=== PATIENT | female | born 1940 | race Caucasian/White ===

== ENCOUNTER → 2017-05-26 | Outpatient (CLI) | payer MEDICARE, BC ==
--- NOTE | 2017-05-26 16:31 | CT ---
EXAMINATION TYPE: CT chest w con DATE OF EXAM: 05/26/2017 COMPARISON: NONE HISTORY: Upper back pain for 3-[address] DLP: 217.9 mGycm, Automated exposure control for dose reduction was used. CONTRAST: Performed injected with 100 mL of Omnipaque 300. TECHNIQUE: Axial images were obtained at 5 mm thick sections. Reconstructed images are reviewed on [employer] computer in the coronal plane. FINDINGS: Portion of the thyroid visualized is normal. Subtle groundglass opacity with a transverse dimension of 0.4 cm is in the anterior right apex. Serie s 4 image 10 lung membreno otherwise appear clear. No enlarged mediastinal or hilar adenopathy is evident. The ascending aorta diameter at the level o f the main pulmonary artery is 2.8 cm. The main pulmonary artery diameter at the bifurcation is 2.[address] sections are obtained through the upper abdomen. Abdomen is essentially unremarkable. Osseous structures appear unremarkable. Some degenerative changes noted in the lower cervical spine. No spinal canal stenosis within the thoracic spine is evident. No suspicious lytic areas are evident. IMPRESSIONS: 1. Tiny density anterior right apex. 2. CT chest is otherwise unremarkable.
== END | disposition home or self-care (01) ==
LOC: RADCTMAIN 14:58
PROVIDERS: ATTEND Internal Medicine Rheumatology
DX: R91.8 Other nonspecific abnormal finding of lung field (principal)
CPT/HCPCS: 82565; 84520; 71260; 36415; Q9967

== ENCOUNTER 2021-06-21 10:18 | Inpatient (IN) | payer MEDICARE, BC ==
[2021-06-21] MEDS ORDERED: SODIUM CHLORIDE 0.9% 1,000 ML IV STA (10:23)
[2021-06-21] MEDS ORDERED: HEPARIN SODIUM 1,000 UN/ML (10ML VL) IV ONE ×3 (10:23→10:57)
[2021-06-21] MEDS ORDERED: LIDOCAINE 1% INJ 10MG/ML (20 ML MDV) ONE (10:25)
[2021-06-21] MEDS ORDERED: NALOXONE 0.4 MG/ML 1 ML VIAL IV PRN (10:26)
--- NOTE | 2021-06-21 10:29 | ED ---
General Adult HPI - General Chief complaint: Chest Pain Stated complaint: STEMI Time Seen by Provider: 06/21/21 10:22 Source: patient, EMS, RN notes reviewed, old records reviewed Mode of arrival: EMS Limitations: no limitations - History of Present Illness Initial comments: Patient is a 81-year-old female with past medical history remarkable for hypert ension, hyperlipidemia who presents emergency Department complaining of sudden onset of chest pain. This occurred at approximately 9 AM. States she was showering when she had sudden onset of left-sided chest pain. States it was a 10 out of 10 at that time, sharp. EMS was called. Patient was found to have EKG changes suggestive of a inferior wall IA, with ST segment elevations in the leads I, 2, aVF. This was sent ahead and communicated to our emergency department before arrival. STEMI pager was activated. Patient is no history of cardiac disease other than hypertension and hyperlipidemia. States this is not occurred previously. Denies any shortness of breath. Denies any abdominal pain. Does endorse that episode of nausea when she started having the pain in the shower, but states she currently has none. States the pain is improved and is now approximately a 6 out of 10. Presents over concern for a heart attack. - Related Data Home Medications Medication Instructions Recorded Confirmed Alendronate Sodium 70 mg PO Q7D 06/21/21 06/21/21 Atorvastatin [Lipitor] 40 mg PO HS 06/21/21 06/21/21 Cyclobenzaprine [Flexeril] 10 mg PO HS PRN 06/21/21 06/21/21 Gabapentin [Neurontin] 300 mg PO TID PRN 06/21/21 06/21/21 Levothyroxine Sodium 88 mcg PO DAILY 06/21/21 06/21/21 Metoprolol Succinate [Toprol XL] 25 mg PO DAILY 06/21/21 06/21/21 NIFEdipine [NIFEdipine ER] 30 mg PO DAILY 06/21/21 06/21/21 Omeprazole [PriLOSEC] 20 mg PO DAILY 06/21/21 06/21/21 traMADol HCL 50 mg PO TID PRN 06/21/21 06/21/21 Allergies Allergy/AdvReac Type Severity Reaction Status Date / Time No Known Allergies Allergy Verified 06/21/21 10:41 Review of Systems ROS Statement: Those systems with pertinent positive or pertinent negative responses have been documented in the HPI. Review of Systems: CONST: Denies fever EYES: Denies blurry vision ENT: Denies nasal congestion C/V: Endorses chest pain RESP: Denies shortness of breath GI: Denies abdominal pain : Denies dysuria SKIN: Denies rash. MSK: Denies joint pain. NEURO: Denies headache ROS Other: All systems not noted in ROS Statement are negative. Past Medical History Past Medical History: Hyperlipidemia, Hypertension Additional Past Medical History / Comment(s): fibromyalgia, arthritis History of Any Multi-Drug Resistant Organisms: None Reported Past Surgical History: No Surgical Hx Reported Past Psychological History: No Psychological Hx Reported Smoking Status: Former smoker Past Alcohol Use History: None Reported Past Drug Use History: None Reported General Exam - General Exam Comments Initial Comments: General: Appears in mild to moderate distress secondary to chest pain. HEAD: Normal with no signs of head trauma. EYES: PERRLA, EOMI, conjunctiva normal, no discharge. ENT: Hearing grossly intact, normal oropharynx. RESPIRATORY: Clear breath sounds bilaterally. No wheezes, rales, or rhonchi. C/V: Regular rate and rhythm. S1 and S2 auscultated. Peripheral pulses 2+ and intact throughout. No peripheral edema. Chest pain is nonreproducible on palpation. ABD: Abd is soft, nontender, nondistended EXT: Normal range of motion, no obvious deformity SKIN: No rashes or lesions observed on exposed skin. NEURO: Alert and oriented 4. No focal deficits. Limitations: no limitations Course Vital Signs 06/21/21 06/21/21 10:19 10:21 Temperature 98.1 F Pulse Rate 79 Pulse Rate [ 73 Corporate Relations Director ] Respiratory 18 Rate Blood Pressure 137/81 O2 Sat by Pulse 98 Oximetry Medical Decision Making - Medical Decision Making Based on the patient's presentation and physical exam, I'm concerned for an acute myocardial infarction. EKG was transferred to our department ahead of arrival, and showed inferior wall STEMI. Therefore STEMI pager was activated pre-arrival. Maintenance Services Dispatcher was called in. When the patient arrived, she was having 6 out of 10 chest pain. Vital signs were within normal limits and stable. ACLS protocol was followed. Patient was immediately placed on 4 L nasal cannula. Patient will be given morphine for chest pain. Nitroglycerin will be avoided due to the inferior wall STEMI. We will obtain cardiac labs, repeat EKG. She already received aspirin 324 mg at home. Patient will be given a heparin bolus and started on IV heparin as well as IV fluids. 2nd IV will be established. She is connected to media monitor and pads. She was in agreement this plan. I did speak with the on-call cylinder block mechanic, Dr. Lepe who was in agreement with the plan. Maintenance Services Dispatcher was called in. Following morphine, patient's pain is improved to 3 out of 10. Vital signs remained within normal limits and stable. Initial labs revealed a negative troponin. Remainder the labs are unremarkable. Maintenance Services Dispatcher called and was ready. Chest x-ray did not yet been completed because of this. Patiently taken to Maintenance Services Dispatcher in critical condition. Patient's did present to bedside, and I updated him on the patient's condition. He was in agreement with this plan. Patient was therefore disposition to Maintenance Services Dispatcher in serious condition. She will be admitted to the hospital afterwards. I spoke with the admitting physician, Dr. Robert who accepted the patient. - Lab Data Result diagrams: 06/21/21 10:25 06/21/21 10:25 Lab Results 06/21/21 06/21/21 06/21/21 Range/Units 10:25 10:25 10:25 WBC 5.3 (3.8-10.6) k/uL RBC 4.20 (3.80-5.40) m/uL Hgb 12.8 (11.4-16.0) gm/dL Hct 37.6 (34.0-46.0) % MCV 89.6 (80.0-100.0) fL MCH 30.5 (25.0-35.0) pg MCHC 34.0 (31.0-37.0) g/dL RDW 12.4 (11.5-15.5) % Plt Count 169 (150-450) k/uL MPV 9.1 Neutrophils % 60 % Lymphocytes % 30 % Monocytes % 7 % Eosinophils % 1 % Basophils % 0 % Neutrophils # 3.2 (1.3-7.7) k/uL Lymphocytes # 1.6 (1.0-4.8) k/uL Monocytes # 0.4 (0-1.0) k/uL Eosinophils # 0.0 (0-0.7) k/uL Basophils # 0.0 (0-0.2) k/uL PT 10.7 (9.0-12.0) sec INR 1.0 (<1.2) APTT 22.6 (22.0-30.0) sec Sodium 138 (137-145) mmol/L Potassium 3.9 (3.5-5.1) mmol/L Chloride 108 H (98-107) mmol/L Carbon Dioxide 21 L (22-30) mmol/L Anion Gap 9 mmol/L BUN 21 H (7-17) mg/dL Creatinine 0.82 (0.52-1.04) mg/dL Est GFR (CKD-EPI)AfAm 79 (>60 ml/min/1.73 sqM) Est GFR (CKD-EPI)NonAf 68 (>60 ml/min/1.73 sqM) Glucose 117 H (74-99) mg/dL Calcium 8.6 (8.4-10.2) mg/dL Magnesium 1.8 (1.6-2.3) mg/dL Total Bilirubin 0.7 (0.2-1.3) mg/dL AST 27 (14-36) U/L ALT 20 (4-34) U/L Alkaline Phosphatase 55 (38-126) U/L Troponin I (0.000-0.034) ng/mL Total Protein 6.6 (6.3-8.2) g/dL Albumin 3.8 (3.5-5.0) g/dL 06/21/21 Range/Units 10:25 WBC (3.8-10.6) k/uL RBC (3.80-5.40) m/uL Hgb (11.4-16.0) gm/dL Hct (34.0-46.0) % MCV (80.0-100.0) fL MCH (25.0-35.0) pg MCHC (31.0-37.0) g/dL RDW (11.5-15.5) % Plt Count (150-450) k/uL MPV Neutrophils % % Lymphocytes % % Monocytes % % Eosinophils % % Basophils % % Neutrophils # (1.3-7.7) k/uL Lymphocytes # (1.0-4.8) k/uL Monocytes # (0-1.0) k/uL Eosinophils # (0-0.7) k/uL Basophils # (0-0.2) k/uL PT (9.0-12.0) sec INR (<1.2) APTT (22.0-30.0) sec Sodium (137-145) mmol/L Potassium (3.5-5.1) mmol/L Chloride (98-107) mmol/L Carbon Dioxide (22-30) mmol/L Anion Gap mmol/L BUN (7-17) mg/dL Creatinine (0.52-1.04) mg/dL Est GFR (CKD-EPI)AfAm (>60 ml/min/1.73 sqM) Est GFR (CKD-EPI)NonAf (>60 ml/min/1.73 sqM) Glucose (74-99) mg/dL Calcium (8.4-10.2) mg/dL Magnesium (1.6-2.3) mg/dL Total Bilirubin (0.2-1.3) mg/dL AST (14-36) U/L ALT (4-34) U/L Alkaline Phosphatase (38-126) U/L Troponin I <0.012 (0.000-0.034) ng/mL Total Protein (6.3-8.2) g/dL Albumin (3.5-5.0) g/dL - EKG Data -: EKG Interpreted by Me EKG Comments: 12-lead Electrocardiogram Interpretation Note EKG was reviewed and interpreted by myself. 12-lead ECG performed at 1021 is interpreted by me as revealing normal sinus rhythm, STEMI at a rate of 80 beats per minute. Hope is normal. W[place] interval is 163 ms, QRS duration is 83 ms, QTc is [address] segment elevations in the inferior leads II, 3, aVF as well as reciprocal ST segment depressions in I, aVL, V2, V1. Findings concerning for ST segment elevation myocardial infarction. R wave progression across the precordium was satisfactory. On my interpretation, this EKG is concerning for ST segment myocardial infarction of the inferior wall.. Disposition Clinical Impression: ST elevation myocardial infarction (STEMI), Chest pain Disposition: ADMITTED IP TO THIS [facility] Condition: Serious Referrals: Cassidy Quintana MD [Primary Care Provider] - 1-2 days Decision Time: 10:34
[2021-06-21] MEDS ORDERED: VERAPAMIL 2.5 MG/ML 2 ML AMP ONE (10:31)
[2021-06-21] MEDS ORDERED: fentaNYL (PF) 50 MCG/ML 2 ML AMP ONE (10:32)
[2021-06-21] MEDS ORDERED: HEPARIN SODIUM 1,000 UN/ML (10ML VL) ONE (10:34)
[2021-06-21] MEDS ORDERED: IV FLUID CONTINUATION 1,000 ML IV ONE ×2 (10:39)
[2021-06-21 10:41] LABS: Basophils % (A) 0 %; Eosinophils % (A) 1 %; HCT 37.6 % (34.0-46.0); HGB 12.8 gm/dL (11.4-16.0); Lymphocytes # (A) 1.6 k/uL (1.0-4.8); Lymphocytes % (A) 30 %; MCH 30.5 pg (25.0-35.0); MCV 89.6 fL (80.0-100.0); Mean Platelet Volume 9.1; Monocytes # (A) 0.4 k/uL (0-1.0); Monocytes % (A) 7 %; Neutrophils # (A) 3.2 k/uL (1.3-7.7); Neutrophils % (A) 60 %; Platelet Count 169 k/uL (150-450); RDW 12.4 % (11.5-15.5); WBC 5.3 k/uL (3.8-10.6)
[2021-06-21] MEDS ORDERED: MIDAZOLAM 2 MG/2 ML VIAL IV ONE (10:45)
[2021-06-21] MEDS ORDERED: fentaNYL (PF) 50 MCG/ML 2 ML AMP IV ONE (10:45)
[2021-06-21] MEDS ORDERED: LIDOCAINE 1% INJ 10MG/ML (20 ML MDV) SQ ONE (10:47)
[2021-06-21] MEDS ORDERED: VERAPAMIL SYRINGE (5 MG/10 ML) INTRAARTER ONE (10:50)
[2021-06-21 10:51] LABS: Albumin 3.8 g/dL (3.5-5.0); Calcium 8.6 mg/dL (8.4-10.2); Magnesium 1.8 mg/dL (1.6-2.3); Potassium 3.9 mmol/L (3.5-5.1); Total Bilirubin 0.7 mg/dL (0.2-1.3); Total Protein 6.6 g/dL (6.3-8.2)
[2021-06-21] MEDS: HEPARIN SOD,PORK IN 0.45% NACL 25,000 UNIT in 0.45% NACL 1 250ML.BAG IV SCH (10:51)
[2021-06-21] MEDS ORDERED: MORPHINE SULFATE 4 MG/ML SYRINGE IVP STA (10:52)
[2021-06-21 10:54] LABS: Partial Thromboplastin Time 22.6 sec (22.0-30.0); Prothrombin Time 10.7 sec (9.0-12.0)
[2021-06-21] MEDS ORDERED: TICAGRELOR 90 MG TAB ONE (10:54)
[2021-06-21] MEDS ORDERED: TICAGRELOR 90 MG TAB PO ONE (11:01)
[2021-06-21] MEDS: PHENYLEPHRINE 10 MG/ML VIAL IV ONE ×2 (11:07→11:15)
[2021-06-21] MEDS ORDERED: IOPAMIDOL-370 125ML BTL INJ ONE (11:29)
[2021-06-21] MEDS ORDERED: IOPAMIDOL-370 100ML BTL INJ ONE (11:29)
[2021-06-21] MEDS ORDERED: MAG HYDROX/AL HYDROX/SIMETH 30 ML CUP PO PRN (11:41)
[2021-06-21] MEDS ORDERED: NITROGLYCERIN SL TABS 0.4 MG TAB SUBLINGUAL PRN (11:41)
[2021-06-21] MEDS ORDERED: ATROPINE SULFATE 0.1 MG/ML 10ML SYRINGE IV PRN (11:41)
[2021-06-21] MEDS ORDERED: ZOLPIDEM 5 MG TAB PO PRN (11:41)
[2021-06-21] MEDS ORDERED: RX INFO: IV CONTRAST WAS GIVEN 1 EACH MISC MISCELLANE PRN (11:41)
--- NOTE | 2021-06-21 11:50 | P.PRCINT ---
Percutaneous Coronary Int. - Percutaneous Coronary Intervention Percutaneous Coronary Intervention: PROCEDURES PERFORMED: Left heart catheterization, bilateral coronary angiography, PCI proximal RCA with a 2.25 x 23 mm Xience KELLEY, postdilated with a 2.5 noncompliant balloon INDICATION: Inferior STEMI HISTORY: Patient is a pleasant 81-year-old female with history of hypertension, hyperlipidemia, family history of CAD who presented with chest pain which started approximately 9 AM. She was found to have inferior STEMI and therefore heart catheterization was recommended. CONSENT:I have discussed the risks, benefits and alternative therapies for the above-mentioned procedure and for both sedation/analgesia as well as necessary blood product administration, if indicated, as they pertain to this patient. The patient has indicated understanding and acceptance of the risks and procedures discussed. PROCEDURE: After the risks, benefits and alternatives of the above mentioned procedure explained in detail with the patient, informed consent was obtained. Patient was taken to the catheterization lab and prepped and draped in usual fashion. 1% lidocaine was used to anesthetize the right radial artery. A 6- Cypriot sheath was placed in the right radial artery using modified Seldinger technique. Initial right coronary angiography was performed with a 6-Cypriot AL 0.75 guide however was noted to have dampening and therefore exchanged out for a 6-Cypriot JR 4 guide. A 0.014 was per wire was used to cross the RCA lesion. Next a 2.0 x 12 mm balloon was used to predilate the lesion. Next a 2.25 x 23 mm Xience KELLEY was advanced and deployed in the proximal to mid RCA. The mid and distal portion of the stent were postdilated with a 2.5 noncompliant balloon. There was still dampening of the JR4 guide and therefore subselective final images were performed after wire was pulled which showed no dissection. Pre- intervention there is 99% stenosis and FRANK 2 flow and postintervention there was 0% stenosis and FRANK-3 flow with no dissection. Left coronary angiography was performed with a 5-Cypriot JL 3.5 catheter in various views. The 6-Cypriot FR4 guide catheter had been inserted into the left ventricle and pressure measurements were obtained. The right radial sheath was removed and a TR band was placed with hemostasis achieved. The patient tolerated the procedure well. Patient was transported back to the post catheterization holding area in stable condition. Conscious Sedation: Patient was monitored under the direct supervision of vision of myself for conscious sedation using Versed and fentanyl for a total duration of 43 minutes HEMODYNAMICS: Aorta: 92/67 LV: 88/4, LVEDP 14 SELECTIVE CORONARY ARTERIOGRAPHY: LEFT MAIN: The left main is a moderate caliber vessel which bifurcates into the LAD and circumflex. There is no significant stenosis. LEFT ANTERIOR DESCENDING CORONARY ARTERY: LAD is a small to moderate caliber vessel which wraps around to the apex. There is a mid LAD 80% stenosis at the level of a small caliber diagonal 1 branch. Diagonal 1 branch also has a 80% ostial stenosis. Otherwise there are mild luminal irregularities including a 30% mid LAD stenosis.. LEFT CIRCUMFLEX CORONARY ARTERY: Left circumflex is a moderate caliber vessel with mid circumflex 30% stenosis.. RIGHT CORONARY ARTERY: The right coronary artery is a small caliber vessel which gives off a PDA and PLV branch and is the dominant vessel. There is a proximal RCA 99% stenosis and otherwise mild luminal irregularities. FINAL IMPRESSION: 1. CAD as described above including 99% proximal RCA stenosis, 80% mid LAD stenosis, 80% diagonal 1 stenosis, 30% mid circumflex stenosis 2. S/p PCI proximal RCA with a 2.25 x 23 mm Xience KELLEY, postdilated with a 2.5 noncompliant balloon 3. Normal left sided filling pressures PLAN: 1. Aggressive risk factor modification per most recent ACC/AHA guidelines. 2. Continue dual antiplatelets with aspirin and Brillinta for 12 months. 3. Staged PCI of LAD/diagonal branch bifurcation within the next 30 days.
[2021-06-21 11:53] LABS: Glucose,Whole Blood 115 mg/dL (75-99)
[2021-06-21] MEDS: METOPROLOL SUCCINATE (ER) 25 MG TAB.ER.24H PO SCH (12:42)
--- NOTE | 2021-06-21 13:52 | P.CRDCN ---
History of Present Illness Consult date: 06/21/21 History of present illness: This is a 81-year-old female with history of hypertension and hypercholesterolemia and also hypothyroidism was brought to the hospital by paramedics with complaints of chest pain of about how follow-up to 40 minutes duration. The pain is precordial in location and felt like tightness. At the time of my examination patient is still having chest discomfort described as about 4-5 on a scale of 1-10. Her EKG showed ST elevation in inferior leads with reciprocal changes. Patient has no history of previous myocardial infarctions or angina. History of fibromyalgia. Patient otherwise doesn't seem to be in acute respiratory distress. No nausea, vomiting or any significant sweating. Patient is advised to have a cardiac catheterization for definitive diagnosis and further intervention as needed. Review of Systems As per the chart Past Medical History Past Medical History: GERD/Reflux, Hyperlipidemia, Hypertension Additional Past Medical History / Comment(s): fibromyalgia, arthritis History of Any Multi-Drug Resistant Organisms: None Reported Past Surgical History: Back Surgery, Bladder Surgery, Section Additional Past Surgical History / Comment(s): cataract surg, macular surg. Past Anesthesia/Blood Transfusion Reactions: No Reported Reaction Past Psychological History: No Psychological Hx Reported Smoking Status: Never smoker Past Alcohol Use History: None Reported Past Drug Use History: None Reported - Past Family History Father Family Medical History: Myocardial Infarction (ME) Brother(s) Family Medical History: Cancer, Coronary Artery Disease (CAD) Additional Family Medical History / Comment(s): 2x CABG Sister(s) Family Medical History: No Reported History Son(s) Family Medical History: No Reported History Medications and Allergies Home Medications Medication Instructions Recorded Confirmed Type Alendronate Sodium 70 mg PO Q7D 06/21/21 06/21/21 History Atorvastatin [Lipitor] 40 mg PO HS 06/21/21 06/21/21 History Cyclobenzaprine [Flexeril] 10 mg PO HS PRN 06/21/21 06/21/21 History Gabapentin [Neurontin] 300 mg PO TID PRN 06/21/21 06/21/21 History Levothyroxine Sodium 88 mcg PO DAILY 06/21/21 06/21/21 History Metoprolol Succinate [Toprol XL] 25 mg PO DAILY 06/21/21 06/21/21 History NIFEdipine [NIFEdipine ER] 30 mg PO DAILY 06/21/21 06/21/21 History Omeprazole [PriLOSEC] 20 mg PO DAILY 06/21/21 06/21/21 History traMADol HCL 50 mg PO TID PRN 06/21/21 06/21/21 History Allergies Allergy/AdvReac Type Severity Reaction Status Date / Time No Known Allergies Allergy Verified 06/21/21 10:41 Physical Exam Vitals: Vital Signs Temp Pulse Pulse Resp BP Pulse Ox 06/21/21 13:10 77 7 L 139/81 06/21/21 13:00 79 15 129/65 06/21/21 12:50 78 20 06/21/21 12:40 21 06/21/21 12:30 81 17 98 06/21/21 12:20 16 06/21/21 12:10 77 20 97 06/21/21 12:00 97.6 F 78 13 129/62 92 L 06/21/21 10:34 71 18 136/76 97 06/21/21 10:30 78 16 133/68 97 06/21/21 10:25 71 16 137/88 98 06/21/21 10:21 73 06/21/21 10:19 98.1 F 79 18 137/81 98 Intake and Output 06/20/21 06/21/21 06/21/21 22:59 06:59 14:59 Intake Total 750 Balance 750 Intake: IV 750 Sodium Chloride 0.9% 1, 150 000 ml @ 999 mls/hr IV . Q1H1M STA Rx#:[id number] Other: Voiding Method Toilet # Voids 1 Weight 72.575 kg GENERAL EXAM: Patient is alert and oriented and in moderate pain HEENT: Normocephalic. Normal reaction of pupils, equal size, normal range of extraocular motion. No erythema or exudates in the throat. NECK: No masses, no nuchal rigidity. CHEST: No chest wall deformity. LUNGS: Equal air entry with no crackles or wheeze. HEART: S1 and S2 normal with no audible mumurs or gallops. Regular rhythm, femorals equal on both sides.. ABDOMEN: No hepatosplenomegaly, normal bowel sounds, no guarding or rigidity. SKIN: No rashes CENTRAL NERVOUS SYSTEM: No focal deficits. EXTREMITIES: No cyanosis, clubbing or edema. Results 06/21/21 10:25 06/21/21 10:25 Cardiac Enzymes 06/21/21 06/21/21 Range/Units 10:25 10:25 AST 27 (14-36) U/L Troponin I <0.012 (0.000-0.034) ng/mL Coagulation 06/21/21 Range/Units 10:25 PT 10.7 (9.0-12.0) sec APTT 22.6 (22.0-30.0) sec CBC 06/21/21 Range/Units 10:25 WBC 5.3 (3.8-10.6) k/uL RBC 4.20 (3.80-5.40) m/uL Hgb 12.8 (11.4-16.0) gm/dL Hct 37.6 (34.0-46.0) % Plt Count 169 (150-450) k/uL Comprehensive Metabolic Panel 06/21/21 Range/Units 10:25 Sodium 138 (137-145) mmol/L Potassium 3.9 (3.5-5.1) mmol/L Chloride 108 H (98-107) mmol/L Carbon Dioxide 21 L (22-30) mmol/L BUN 21 H (7-17) mg/dL Creatinine 0.82 (0.52-1.04) mg/dL Glucose 117 H (74-99) mg/dL Calcium 8.6 (8.4-10.2) mg/dL AST 27 (14-36) U/L ALT 20 (4-34) U/L Alkaline Phosphatase 55 (38-126) U/L Total Protein 6.6 (6.3-8.2) g/dL Albumin 3.8 (3.5-5.0) g/dL Current Medications Generic Name Dose Route Start Last Admin Trade Name Freq PRN Reason Stop Dose Admin Al Hydroxide/Mg Hydroxide 30 ml 06/21/21 11:41 Mag Hydrox/Al Hydrox/Simeth 30 Ml Cup PO Q4HR PRN Heartburn Aspirin 81 mg 06/22/21 09:00 Aspirin 81 Mg PO DAILY FAHAD Atorvastatin Calcium 80 mg 06/21/21 21:00 Atorvastatin 80 Mg Tab PO HS FAHAD Atropine Sulfate 0.5 mg 06/21/21 11:41 Atropine Sulfate 0.1 Mg/Ml 10ml Syringe IV ONCE PRN Symptomatic Bradycardia Heparin Sodium/Sodium Chloride 250 mls @ 8.709 mls/hr 06/21/21 10:30 06/21/21 10:51 25,000 unit/ Sodium Chloride IV Not Given .Q24H REPLACED BY [facility] Protocol 12 UNITS/KG/HR Sodium Chloride 1,000 ml/ IV 1,000 mls @ 72.575 mls/hr 06/21/21 11:45 Solution IV .[id number] REPLACED BY [facility] 1 ML/KG/HR Metoprolol Succinate 25 mg 06/21/21 11:45 06/21/21 12:42 Metoprolol Succinate (Er) 25 Mg Tab.Er.24h PO Not Given DAILY REPLACED BY [facility] Miscellaneous Information 1 each 06/21/21 11:41 Rx Info: Iv Contrast Was Given 1 Each Misc MISCELLANE 06/23/21 11:41 DAILY PRN Per Protocol Naloxone HCl 0.2 mg 06/21/21 10:26 Naloxone 0.4 Mg/Ml 1 Ml Vial IV Q2M PRN Opioid Reversal Nitroglycerin 0.4 mg 06/21/21 11:41 Nitroglycerin Sl Tabs 0.4 Mg Tab SUBLINGUAL Q5M PRN Chest Pain Ticagrelor 90 mg 06/21/21 21:00 Ticagrelor 90 Mg Tab PO BID REPLACED BY [facility] Protocol Zolpidem Tartrate 5 mg 06/21/21 11:41 Zolpidem 5 Mg Tab PO HS PRN Insomnia Intake and Output 06/20/21 06/21/21 06/21/21 22:59 06:59 14:59 Intake Total 750 Balance 750 Intake: IV 750 Sodium Chloride 0.9% 1, 150 000 ml @ 999 mls/hr IV . Q1H1M STA Rx#:[id number] Other: Voiding Method Toilet # Voids 1 Weight 72.575 kg Patient Weight 06/22/21 06:59 Weight 72.575 kg 06/21/21 10:25 06/21/21 10:25 EKG Interpretations (text) Sinus rhythm with acute inferior wall ME changes Assessment and Plan (1) Hypertension, essential Current Visit: Yes Status: Acute Code(s): I10 - ESSENTIAL (PRIMARY) HYPERTENSION SNOMED Code(s): 08228627 (2) ST elevation myocardial infarction (STEMI) Current Visit: Yes Status: Acute Code(s): I21.3 - ST ELEVATION (STEMI) MY OCARDIAL INFARCTION OF [facility] SITE SNOMED Code(s): 22101860 (3) Hypercholesterolemia Current Visit: Yes Status: Acute Code(s): E78.00 - PURE HYPERCHOLESTEROLEMIA, UNSPECIFIED SNOMED Code(s): 15490279 (4) Hypothyroidism Current Visit: Yes Status: Acute Code(s): E03.9 - HYPOTHYROIDISM, UNSPECIFIED SNOMED Code(s): 54294157 (5) Fibromyalgia Current Visit: Yes Status: Acute Code(s): M79.7 - FIBROMYALGIA SNOMED Code(s): 084940345 Plan: Patient is being admitted with acute inferior wall ME. Patient is being taken to medical laboratory manager for intervention. Further recommendations depend upon the clinical course
[2021-06-21] MEDS ORDERED: CYCLOBENZAPRINE 10 MG TAB PO PRN (14:13)
--- NOTE | 2021-06-21 14:17 | P.HPIM ---
History of Present Illness H&P Date: 06/21/21 Chief Complaint: Chest pain This is a pleasant 81-year-old patient who follows with Dr. Cassidy Quintana. Chronic stable medical conditions include GERD, hyperlipidemia, hypertension, osteoarthritis, osteoarthritis, hypothyroid, restless leg syndrome. Patient has no prior cardiac history. This morning was taking a shower when she started having significant left-sided chest pain. Rather severe. No radiation. Became dizzy lightheaded. [place] tired. Nausea nearly passed out. Decided to call 911. Patient in the ER was found to have acute ST elevation myocardial infarction. Patient is found to have 99% proximal RCA stenosis 80% mid LAD stenosis and 80% diagonal stenosis. Successful intervention was carried out to the RCA. Patient is due to come back for the second intervention to LAD down the road. Patient's currently the ICU. Chest pain-free. and daughter the bedside. Review of systems: GEN.: Tired EYES: None HEENT: None NECK: None RESPIRATORY: As above CARDIOVASCULAR: As above GASTROINTESTINAL: None GENITOURINARY: None MUSCULOSKELETAL: Some joint pains LYMPHATICS: None HEMATOLOGICAL: None PSYCHIATRY: None NEUROLOGICAL: None Past medical history to include: GERD, hypertension, hypothyroid, hyperlipidemia, restless leg syndrome, fibromyalgia, arthritis Social history: . Lives with her . No history of smoking and alcohol. Family history: CAD Physical examination: VITAL SIGNS: 98.1, 79, 18, 137/81, 98% on 4 L GENERAL: BMI 25.8, reclining in bed, awake, tired. EYES: Pupils equal. Conjunctiva normal. HEENT: External appearance of nose and ears normal, oral cavity grossly normal. NECK: JVD not raised; masses not palpable. HEART: First and second heart sounds are normal; no edema. LUNGS: Respiratory rate normal; clear to auscultation. ABDOMEN: Soft, nontender, liver spleen not palpable, no masses palpable. PSYCH: Alert and oriented x3; mood and affect normal. MUSCULOSKELETAL:No Clubbing/cyanosis;muscles-grossly intact, evidence of OA NEUROLOGICAL: Cranial nerves grossly intact; no facial asymmetry, power and sensation grossly intact. LYMPHATICS: No lymph nodes palpable in the axilla and neck INVESTIGATIONS, reviewed in the clinical context: White count 5.3 hemoglobin 12.8 platelets 169 potassium 3.9 BUN 21 creatine 0.82 Troponin I less than 0.012 EKG tracing personally reviewed by me-normal sinus rhythm. ST elevation inferior leads. And depression and V1 and V2. Assessment and plan: -Acute ST elevation [place] of the inferior wall Successful PTCA stent to RCA. -CAD with cardiac cath showing initial lesion to LAD. [address] Aspirin 81 mg, Lipitor 80 mg daily at bedtime, Toprol-XL 25 mg a day, Brilinta -GERD Prilosec -Essential hypertension Toprol-XL 25 mg a day. Add Prinivil 5 mg daily at bedtime -Hypothyroid Synthroid 88 g a day -Hyperlipidemia Lipitor 80 mg daily at bedtime -Restless leg syndrome On Neurontin when necessary -IV heparin monitoring Follow PTT Patient ICU. IV heparin. Aspirin and Lipitor beta terrell. Home medications r esumed. 2-D echo. Patient for repeat coronary intervention down the road. Care was discussed with the patient her and daughter the bedside. Questions answered. Follow with cardiology. Given the complexity and severity of patient's condition expect the patient to be in the hospital at least for 2 overnights Past Medical History Past Medical History: Hyperlipidemia, Hypertension Additional Past Medical History / Comment(s): fibromyalgia, arthritis History of Any Multi-Drug Resistant Organisms: None Reported Past Surgical History: No Surgical Hx Reported Past Psychological History: No Psychological Hx Reported Smoking Status: Former smoker Past Alcohol Use History: None Reported Past Drug Use History: None Reported - Past Family History Father Family Medical History: Myocardial Infarction ([place]) Brother(s) Family Medical History: Cancer, Coronary Artery Disease (CAD) Additional Family Medical History / Comment(s): 2x CABG Sister(s) Family Medical History: No Reported History Son(s) Family Medical History: No Reported History Medications and Allergies Home Medications Medication Instructions Recorded Confirmed Type Alendronate Sodium 70 mg PO Q7D 06/21/21 06/21/21 History Atorvastatin [Lipitor] 40 mg PO HS 06/21/21 06/21/21 History Cyclobenzaprine [Flexeril] 10 mg PO HS PRN 06/21/21 06/21/21 History Gabapentin [Neurontin] 300 mg PO TID PRN 06/21/21 06/21/21 History Levothyroxine Sodium 88 mcg PO DAILY 06/21/21 06/21/21 History Metoprolol Succinate [Toprol XL] 25 mg PO DAILY 06/21/21 06/21/21 History NIFEdipine [NIFEdipine ER] 30 mg PO DAILY 06/21/21 06/21/21 History Omeprazole [PriLOSEC] 20 mg PO DAILY 06/21/21 06/21/21 History traMADol HCL 50 mg PO TID PRN 06/21/21 06/21/21 History Allergies Allergy/AdvReac Type Severity Reaction Status Date / Time No Known Allergies Allergy Verified 06/21/21 10:41 Physical Exam Vitals: Vital Signs Temp Pulse Pulse Resp BP Pulse Ox 06/21/21 10:34 71 18 136/76 97 06/21/21 10:30 78 16 133/68 97 06/21/21 10:25 71 16 137/88 98 06/21/21 10:21 73 06/21/21 10:19 98.1 F 79 18 137/81 98 Intake and Output 06/20/21 06/21/21 06/21/21 22:59 06:59 14:59 Intake Total 600 Balance 600 Intake: IV 600 Other: Weight 72.575 kg Results CBC & Chem 7: 06/21/21 10:25 06/21/21 10:25 Labs: Abnormal Lab Results - Last 24 Hours (Table) 06/21/21 06/21/21 Range/Units 10:25 11:52 Chloride 108 H (98-107) mmol/L Carbon Dioxide 21 L (22-30) mmol/L BUN 21 H (7-17) mg/dL Glucose 117 H (74-99) mg/dL POC Glucose (mg/dL) 115 H (75-99) mg/dL
--- NOTE | 2021-06-21 14:56 | XR ---
EXAMINATION TYPE: XR chest 1V portable DATE OF EXAM: 06/21/2021 COMPARISON: NONE HISTORY: Chest pain TECHNIQUE: Single view FINDINGS: Heart is normal. Lungs are clear of infiltrate. There is no heart failure. There are no hil ar masses. Costophrenic angles are clear. IMPRESSION: No active cardiopulmonary disease. Normal heart.
[2021-06-21] MEDS: SODIUM CHLORIDE 0.9% 1,000 ML in EMPTY BAG 1 BAG IV SCH (16:19)
[2021-06-21] MEDS: lisinopriL 5 MG TAB PO SCH (21:16)
[2021-06-21] MEDS: TICAGRELOR 90 MG TAB PO SCH (21:16)
[2021-06-21] MEDS: ATORVASTATIN 80 MG TAB PO SCH (21:16)
[2021-06-22] MEDS: METOPROLOL SUCCINATE (ER) 25 MG TAB.ER.24H PO SCH (07:44)
[2021-06-22] MEDS: ASPIRIN 81 MG PO SCH (07:44)
[2021-06-22] MEDS: LEVOTHYROXINE 88 MCG TAB PO SCH (07:44)
[2021-06-22] MEDS: PANTOPRAZOLE 40 MG TABLET PO SCH (07:45)
[2021-06-22] MEDS: TICAGRELOR 90 MG TAB PO SCH ×2 (07:45→20:55)
[2021-06-22] MEDS: HEPARIN SOD,PORK IN 0.45% NACL 25,000 UNIT in 0.45% NACL 1 250ML.BAG IV SCH (07:47)
[2021-06-22] MEDS: SODIUM CHLORIDE 0.9% 1,000 ML in EMPTY BAG 1 BAG IV SCH ×2 (07:47→15:54)
[2021-06-22 08:43] LABS: African American GFR (CKD) 81 (>60 ml/min/1.73 sqM); Non-African American GFR(CKD) 71 (>60 ml/min/1.73 sqM)
--- NOTE | 2021-06-22 11:23 | P.PN ---
Subjective Progress Note Date: 06/22/21 This is a 81-year-old female with history of hypertension and hypercholesterolemia who was admitted to the hospital with inferior wall myocardial infarction. Patient had stent placement of the RCA. Patient also has a critical lesion in the LAD with a 80% stenosis. Planning to do stent placement of the LAD either this admission or as an outpatient. She denies any chest pain or shortness of breath. Her puncture site is soft without any hematoma or significant ecchymosis. Radial pulses are preserved. Lungs are clear. Heart is regular. No JVD. Patient's activity to be increased pain. Patient could be transferred to telemetry unit. Echocardiogram in the morning. He patient remains stable without any chest pains with activity, patient could be discharged home to have the procedure as an outpatient. Objective - Vital Signs Vital signs: Vital Signs Temp 98.2 F 06/22/21 08:00 Pulse 112 H 06/22/21 09:00 Resp 27 H 06/22/21 09:00 BP 122/71 06/22/21 09:00 Pulse Ox 97 06/22/21 08:00 Intake & Output 06/21/21 06/22/21 06/22/21 18:59 06:59 18:59 Intake Total 825 350 Output Total 1400 1650 500 Balance -575 -1300 -500 Weight 72.575 kg Intake: IV 825 Sodium Chloride 0.9% 1, 225 000 ml @ 999 mls/hr IV . Q1H1M STA Rx#:[id number] Oral 350 Output: Urine 1400 1650 500 Other: Voiding Method Toilet Toilet Toilet # Voids 1 # Bowel Movements 1 - Exam GENERAL EXAM: Patient is alert and oriented and doesn't appear to be in any acute distress HEENT: Normocephalic. Normal reaction of pupils, equal size, normal range of extraocular motion. No erythema or exudates in the throat. NECK: No masses, no nuchal rigidity. CHEST: No chest wall deformity. LUNGS: Equal air entry with no crackles or wheeze. HEART: S1 and S2 normal with no audible mumurs or gallops. Regular rhythm, femorals equal on both sides.. ABDOMEN: No hepatosplenomegaly, normal bowel sounds, no guarding or rigidity. SKIN: No rashes CENTRAL NERVOUS SYSTEM: No focal deficits. EXTREMITIES: No cyanosis, clubbing or edema. PUNCTURE SITE: Healing well without any hematoma. Radial pulses are preserved - Labs CBC & Chem 7: 06/21/21 10:25 06/22/21 08:23 Labs: Abnormal Lab Results - Last 24 Hours (Table) 06/21/21 Range/Units 11:52 POC Glucose (mg/dL) 115 H (75-99) mg/dL Assessment and Plan (1) Hypertension, essential Current Visit: Yes Status: Acute Code(s): I10 - ESSENTIAL (PRIMARY) HYPERTENSION SNOMED Code(s): 04959968 (2) ST elevation myocardial infarction (STEMI) Current Visit: Yes Status: Acute Code(s): I21.3 - ST ELEVATION (STEMI) MYOCARDIAL INFARCTION OF UNSP SITE SNOMED Code(s): 05544187 (3) Hypercholesterolemia Current Visit: Yes Status: Acute Code(s): E78.00 - PURE HYPERCHOLESTEROLEMIA, UNSPECIFIED SNOMED Code(s): 05217422 (4) Hypothyroidism Current Visit: Yes Status: Acute Code(s): E03.9 - HYPOTHYROIDISM, UNSPECIFIED SNOMED Code(s): 41527828 (5) Fibromyalgia Current Visit: Yes Status: Acute Code(s): M79.7 - FIBROMYALGIA SNOMED Code(s): 952500359 Plan: Status post stent placement of the RCA. Status post inferior wall ID. Clinically stable. Increase activity. Echocardiogram. Further recommendation depending upon the clinical course
[2021-06-22 11:46] LABS: Chol/HDL Ratio 2.62 Ratio; LDL Cholesterol,Calculated 54.4 mg/dL (0.0-131.0)
[2021-06-22 11:57] LABS: Basophils % (A) 0 %; Eosinophils % (A) 0 %; HCT 37.8 % (34.0-46.0); HGB 12.6 gm/dL (11.4-16.0); Lymphocytes # (A) 1.2 k/uL (1.0-4.8); Lymphocytes % (A) 29 %; MCH 30.8 pg (25.0-35.0); MCHC 33.4 g/dL (31.0-37.0); MCV 92.2 fL (80.0-100.0); Mean Platelet Volume 8.9; Monocytes # (A) 0.2 k/uL (0-1.0); Monocytes % (A) 6 %; Neutrophils # (A) 2.5 k/uL (1.3-7.7); Neutrophils % (A) 62 %; Platelet Count 180 k/uL (150-450); RDW 13.1 % (11.5-15.5); WBC 4.1 k/uL (3.8-10.6)
[2021-06-22] MEDS: traMADol 50 MG TAB PO PRN ×2 (12:02→20:54)
[2021-06-22 12:07] LABS: Potassium 3.9 mmol/L (3.5-5.1)
--- NOTE | 2021-06-22 14:42 | P.PN ---
Progress Note - Text Progress Note Date: 06/22/21 Chief Complaint: Chest pain This is a pleasant 81-year-old patient who follows with Dr. Cassidy Quintana. Chronic stable medical conditions include GERD, hyperlipidemia, hypertension, osteoarthritis, osteoarthritis, hypothyroid, restless leg syndrome. Patient has no prior cardiac history. This morning was taking a shower when she started having significant left-sided chest pain. Rather severe. No radiation. Became dizzy lightheaded. [place] tired. Nausea nearly passed out. Decided to call 911. Patient in the ER was found to have acute ST elevation myocardial infarction. Patient is found to have 99% proximal RCA stenosis 80% mid LAD stenosis and 80% diagonal stenosis. Successful intervention was carried out to the RCA. Patient is due to come back for the second intervention to LAD down the road. Patient's currently the ICU. Chest pain-free. and daughter the bedside. June 22: ICU: No chest pain or shortness of breath. Sinus rhythm. Has been out of bed. Oral intake fair. Cardiology will decide about second intervention. Active Medications Al Hydroxide/Mg Hydroxide (Mag Hydrox/Al Hydrox/Simeth 30 Ml Cup) 30 ml PO Q4HR PRN PRN Reason: Heartburn Aspirin (Aspirin 81 Mg) 81 mg PO DAILY [facility] Last Admin: 06/22/21 07:44 Dose: 81 mg Documented by: Atorvastatin Calcium (Atorvastatin 80 Mg Tab) 80 mg PO [facility] Last Admin: 06/21/21 21:16 Dose: 80 mg Documented by: Atropine Sulfate (Atropine Sulfate 0.1 Mg/Ml 10ml Syringe) 0.5 mg IV ONCE PRN PRN Reason: Symptomatic Bradycardia Cyclobenzaprine HCl (Cyclobenzaprine 10 Mg Tab) 10 mg PO HS PRN PRN Reason: Muscle Spasm Gabapentin (Gabapentin 300 Mg Cap) 300 mg PO TID PRN PRN Reason: Nerve/Neuropathic Pain Sodium Chloride 1,000 ml/ IV (Solution) 1,000 mls @ 72.575 mls/hr IV .[id number] [facility] Last Admin: 06/22/21 07:47 Dose: Not Given Documented by: Levothyroxine Sodium (Levothyroxine 88 Mcg Tab) 88 mcg PO 0630 [facility] Last Admin: 06/22/21 07:44 Dose: 88 mcg Documented by: Lisinopril (Lisinopril 5 Mg Tab) 5 mg PO HS [facility] Last Admin: 06/21/21 21:16 Dose: 5 mg Documented by: Metoprolol Succinate (Metoprolol Succinate (Er) 25 Mg Tab.Er.24h) 25 mg PO DAILY [facility] Last Admin: 06/22/21 07:44 Dose: 25 mg Documented by: Miscellaneous Information (Rx Info: Iv Contrast Was Given 1 Each Misc) 1 each MISCELLANE DAILY PRN PRN Reason: Per Protocol Stop: 06/23/21 11:41 Naloxone HCl (Naloxone 0.4 Mg/Ml 1 Ml Vial) 0.2 mg IV Q2M PRN PRN Reason: Opioid Reversal Nitroglycerin (Nitroglycerin Sl Tabs 0.4 Mg Tab) 0.4 mg SUBLINGUAL Q5M PRN PRN Reason: Chest Pain Pantoprazole Sodium (Pantoprazole 40 Mg Tablet) 40 mg PO DAILY [facility] Last Admin: 06/22/21 07:45 Dose: 40 mg Documented by: Ticagrelor (Ticagrelor 90 Mg Tab) 90 mg PO BID [facility]; Protocol Last Admin: 06/22/21 07:45 Dose: 90 mg Documented by: Tramadol HCl (Tramadol 50 Mg Tab) 50 mg PO TID PRN PRN Reason: Moderate Pain Last Admin: 06/22/21 12:02 Dose: 50 mg Documented by: Zolpidem Tartrate (Zolpidem 5 Mg Tab) 5 mg PO HS PRN PRN Reason: Insomnia Past medical history to include: GERD, hypertension, hypothyroid, hyperlipidemia, restless leg syndrome, fibromyalgia, arthritis Social history: . Lives with her . No history of smoking and alcohol. Family history: CAD Physical examination: VITAL SIGNS: 98.5, 86, 15, 129-73, 98% room air GENERAL: A declining in bed, awake, comfortable EYES: Pupils equal. Conjunctiva normal. HEENT: External appearance of nose and ears normal, oral cavity grossly normal. NECK: JVD not raised; masses not palpable. HEART: First and second heart sounds are normal; no edema. LUNGS: Respiratory rate normal; clear to auscultation. ABDOMEN: Soft, nontender, liver spleen not palpable, no masses palpable. PSYCH: Alert and oriented x3; mood and affect normal. MUSCULOSKELETAL:No Clubbing/cyanosis;muscles-grossly intact, evidence of OA INVESTIGATIONS, reviewed in the clinical context: June 22: White count 4.1 hemoglobin 12.6 platelets 180 potassium 3.9 creatinine 0.8 LDL 54 White count 5.3 hemoglobin 12.8 platelets 169 potassium 3.9 BUN 21 creatine 0.82 Troponin I less than 0.012 EKG tracing personally reviewed by me-normal sinus rhythm. ST elevation inferior leads. And depression and V1 and V2. Chest x-ray film personally reviewed by me-no infiltrates Assessment and plan: -Acute ST elevation [place] of the inferior wall PTCA/ stent to RCA. -CAD with cardiac cath showing initial lesion to LAD. [address]. Aspirin 81 mg, Lipitor 80 mg daily at bedtime, Toprol-XL 25 mg a day, Brilinta -GERD Prilosec -Essential hypertension Toprol-XL 25 mg a day. Add Prinivil 5 mg daily at bedtime -Hypothyroid Synthroid 88 g a day -Hyperlipidemia Lipitor 80 mg daily at bedtime -Restless leg syndrome On Neurontin when necessary -IV heparin monitoring Follow PTT Continue current treatment plan. Discussed with patient. Increase activity as tolerated. Follow with cardiology.
[2021-06-22] MEDS: GABAPENTIN 300 MG CAP PO PRN (20:54)
[2021-06-22] MEDS: ATORVASTATIN 80 MG TAB PO SCH (20:55)
[2021-06-22] MEDS: lisinopriL 5 MG TAB PO SCH (20:56)
[2021-06-23] MEDS: SODIUM CHLORIDE 0.9% 1,000 ML in EMPTY BAG 1 BAG IV SCH (04:27)
[2021-06-23] MEDS: LEVOTHYROXINE 88 MCG TAB PO SCH (05:56)
[2021-06-23] MEDS: TICAGRELOR 90 MG TAB PO SCH (08:15)
[2021-06-23] MEDS: ASPIRIN 81 MG PO SCH (08:15)
[2021-06-23] MEDS: PANTOPRAZOLE 40 MG TABLET PO SCH (08:15)
[2021-06-23] MEDS: METOPROLOL SUCCINATE (ER) 25 MG TAB.ER.24H PO SCH (08:15)
[2021-06-23] MEDS: GABAPENTIN 300 MG CAP PO PRN (08:16)
[2021-06-23] MEDS: traMADol 50 MG TAB PO PRN (08:16)
--- NOTE | 2021-06-23 10:47 | ECHOF ---
Referral Reason:ID MEASUREMENTS -------- HEIGHT: 167.6 cm WEIGHT: 72.1 kg BP: 104/67 RVIDd: 2.5 cm (< 3.3) IVSd: 1.1 cm (0.6 - 1.1) LVIDd: 3.6 cm (3.9 - 5.3) LVPWd: 1.0 cm (0.6 - 1.1) IVSs: 1.7 cm LVIDs: 2.1 cm LVPWs: 1.2 cm LA Diam: 3.2 cm (2.7 - 3.8) LAESV Index (A-L): 12.19 ml/m Ao Diam: 2.8 cm (2.0 - 3.7) AV Cusp: 2.0 cm (1.5 - 2.6) MV EXCURSION: 13.059 mm (> 18.000) MV EF SLOPE: 46 mm/s (70 - 150) EPSS: 0.7 cm MV E Abhijit: 0.74 m/s MV DecT: 282 ms MV A Abhijit: 1.07 m/s MV E/A Ratio: 0.69 RAP: 5.00 mmHg RVSP: 29.66 mmHg FINDINGS -------- Sinus rhythm. This was a technically good study. The left ventricular size is normal. Left ventricular wall thickness is normal. Overall left vent ricular systolic function is normal with, an EF between 55 - 60 %. The right ventricle is normal in size. Normal LA size by volume 22+/-6 ml/m2. The right atrium is normal in size. Interatrial and interventricular septum intact. There is mild aortic valve sclerosis. There is trace mitral regurgitation. Mild tricuspid regurgitation present. Right ventricular systolic pressure is normal at < 35 mmHg. Trace/mild (physiologic) pulmonic regurgitation. The aortic root size is normal. Normal inferior vena cava with normal inspiratory collapse consistent with estimated right atrial pre ssure of 5 mmHg. There is no pericardial effusion. CONCLUSIONS -------- 1. The left ventricular size is normal. 2. Left ventricular wall thickness is normal. 3. Overall left ventricular systolic function is normal with, an EF between 55 - 60 %. 4. Normal LA size by volume 22+/-6 ml/m2. 5. There is mild aortic valve sclerosis. 6. There is trace mitral regurgitation. 7. Mild tricuspid regurgitation present. 8. Trace/mild (physiologic) pulmonic regurgitation. 9. There is no pericardial effusion. BEHAVIORAL INSTRUCTOR: Kamila Lee RDCS
[2021-06-23 11:18] VITALS: BP 123/78; PULSE 87; RESP 16; TEMP 97.9
--- NOTE | 2021-06-23 11:59 | P.DS ---
Providers Date of admission: 06/21/21 10:26 Expected date of discharge: 06/23/21 Attending physician: Raul Robert Consults: 06/21/21 10:24 Consult Physician Stat Consulting Provider: Filipe Thomas Consult Reason/Comments: STEMI ACTIVATION COMPLETE Do you want consulting provider notified?: Yes 06/21/21 11:41 Consult Physician Routine Consulting Provider: Cardiology William Consult Reason/Comments: Post Interventional patient Do you want consulting provider notified?: Already Contacted Primary care physician: Cassidy Quintana [facility] Course: Chief Complaint: Chest pain This is a pleasant 81-year-old patient who follows with Dr. Cassidy Quintana. Chronic stable medical conditions include GERD, hyperlipidemia, hypertension, osteoarthritis, osteoarthritis, hypothyroid, restless leg syndrome. Patient has no prior cardiac history. This morning was taking a shower when she started having significant left-sided chest pain. Rather severe. No radiation. Became dizzy lightheaded. [place] tired. Nausea nearly passed out. Decided to call 911. Patient in the ER was found to have acute ST elevation myocardial infarction. Patient is found to have 99% proximal RCA stenosis 80% mid LAD stenosis and 80% diagonal stenosis. Successful intervention was carried out to the RCA. Patient is due to come back for the second intervention to LAD down the road. Patient's currently the ICU. Chest pain-free. and daughter the bedside. June 22: ICU: No chest pain or shortness of breath. Sinus rhythm. Has been out of bed. Oral intake fair. Cardiology will decide about second intervention. June 23: ICU: Patient up and about. No chest pain no shortness of breath. Discussed with Dr. AMBIKA Thomson. Patient okay to be discharged. Discussed with patient. She'll follow-up with cardiology outpatient. Discussion and discharge planning more than 35 minutes Active Medications Al Hydroxide/Mg Hydroxide (Mag Hydrox/Al Hydrox/Simeth 30 Ml Cup) 30 ml PO Q4HR PRN PRN Reason: Heartburn Aspirin (Aspirin 81 Mg) 81 mg PO DAILY [facility] Last Admin: 06/23/21 08:15 Dose: 81 mg Documented by: Atorvastatin Calcium (Atorvastatin 80 Mg Tab) 80 mg PO HS [facility] Last Admin: 06/22/21 20:55 Dose: 80 mg Documented by: Atropine Sulfate (Atropine Sulfate 0.1 Mg/Ml 10ml Syringe) 0.5 mg IV ONCE PRN PRN Reason: Symptomatic Bradycardia Cyclobenzaprine HCl (Cyclobenzaprine 10 Mg Tab) 10 mg PO HS PRN PRN Reason: Muscle Spasm Gabapentin (Gabapentin 300 Mg Cap) 300 mg PO TID PRN PRN Reason: Nerve/Neuropathic Pain Last Admin: 06/23/21 08:16 Dose: 300 mg Documented by: Sodium Chloride 1,000 ml/ IV (Solution) 1,000 mls @ 72.575 mls/hr IV .[id number] [facility] Last Admin: 06/23/21 04:27 Dose: Not Given Documented by: Levothyroxine Sodium (Levothyroxine 88 Mcg Tab) 88 mcg PO 0630 [facility] Last Admin: 06/23/21 05:56 Dose: 88 mcg Documented by: Lisinopril (Lisinopril 5 Mg Tab) 5 mg PO HS [facility] Last Admin: 06/22/21 20:56 Dose: 5 mg Documented by: Metoprolol Succinate (Metoprolol Succinate (Er) 25 Mg Tab.Er.24h) 25 mg PO DAILY [facility] Last Admin: 06/23/21 08:15 Dose: 25 mg Documented by: Naloxone HCl (Naloxone 0.4 Mg/Ml 1 Ml Vial) 0.2 mg IV Q2M PRN PRN Reason: Opioid Reversal Nitroglycerin (Nitroglycerin Sl Tabs 0.4 Mg Tab) 0.4 mg SUBLINGUAL Q5M PRN PRN Reason: Chest Pain Pantoprazole Sodium (Pantoprazole 40 Mg Tablet) 40 mg PO DAILY [facility] Last Admin: 06/23/21 08:15 Dose: 40 mg Documented by: Ticagrelor (Ticagrelor 90 Mg Tab) 90 mg PO BID [facility]; Protocol Last Admin: 06/23/21 08:15 Dose: 90 mg Documented by: Tramadol HCl (Tramadol 50 Mg Tab) 50 mg PO TID PRN PRN Reason: Moderate Pain Last Admin: 06/23/21 08:16 Dose: 50 mg Documented by: Zolpidem Tartrate (Zolpidem 5 Mg Tab) 5 mg PO HS PRN PRN Reason: Insomnia Past medical history to include: GERD, hypertension, hypothyroid, hyperlipidemia, restless leg syndrome, fibromyalgia, arthritis Social history: . Lives with her . No history of smoking and alcohol. Family history: CAD Physical examination: VITAL SIGNS: 97.9, 87, 16, 123/78, 96% room air GENERAL: Sitting up, comfortable EYES: Pupils equal. Conjunctiva normal. HEENT: External appearance of nose and ears normal, oral cavity grossly normal. NECK: JVD not raised; masses not palpable. HEART: First and second heart sounds are normal; no edema. LUNGS: Respiratory rate normal; clear to auscultation. ABDOMEN: Soft, nontender, liver spleen not palpable, no masses palpable. PSYCH: Alert and oriented x3; mood and affect normal. MUSCULOSKELETAL:No Clubbing/cyanosis;muscles-grossly intact, evidence of OA INVESTIGATIONS, reviewed in the clinical context: LDL 54 June 22: White count 4.1 hemoglobin 12.6 platelets 180 potassium 3.9 creatinine 0.8 LDL 54 White count 5.3 hemoglobin 12.8 platelets 169 potassium 3.9 BUN 21 creatine 0.82 Troponin I less than 0.012 EKG tracing personally reviewed by me-normal sinus rhythm. ST elevation inferior leads. And depression and V1 and V2. Chest x-ray film personally reviewed by me-no infiltrates Assessment and plan: -Acute ST elevation [place] of the inferior wall PTCA/ stent to RCA. -CAD with cardiac cath showing initial lesion to LAD. for LAD/diagonal intervention down the road. Aspirin 81 mg, Lipitor 80 mg daily at bedtime, Toprol-XL 25 mg a day, Brilinta -GERD Prilosec -Essential hypertension Toprol-XL 25 mg a day. Add Prinivil 5 mg daily at bedtime -Hypothyroid Synthroid 88 g a day -Hyperlipidemia Lipitor 80 mg daily at bedtime -Restless leg syndrome On Neurontin when necessary -IV heparin monitoring: Discontinued Follow PTT Disposition: Home Plan - Discharge Summary Discharge Rx Participant: Yes New Discharge Prescriptions: New Ticagrelor [Brilinta] 90 mg PO BID 30 Days #60 tab Atorvastatin [Lipitor] 80 mg PO HS 30 Days #30 tab Nitroglycerin Sl Tabs [Nitrostat] 0.4 mg SUBLINGUAL Q5M PRN #25 tab PRN Reason: Chest Pain lisinopriL [Zestril] 5 mg PO HS 30 Days #90 tab Aspirin 81 mg PO DAILY 90 Days #90 tab Continue traMADol HCL 50 mg PO TID PRN PRN Reason: Pain Levothyroxine Sodium 88 mcg PO DAILY Gabapentin [Neurontin] 300 mg PO TID PRN PRN Reason: Pain Omeprazole [PriLOSEC] 20 mg PO DAILY Metoprolol Succinate [Toprol XL] 25 mg PO DAILY Cyclobenzaprine [Flexeril] 10 mg PO HS PRN PRN Reason: Muscle Spasm Alendronate Sodium 70 mg PO Q7D Discontinued Atorvastatin [Lipitor] 40 mg PO HS NIFEdipine [NIFEdipine ER] 30 mg PO DAILY Discharge Medication List Alendronate Sodium 70 mg PO Q7D 06/21/21 [History] Cyclobenzaprine [Flexeril] 10 mg PO HS PRN 06/21/21 [History] Gabapentin [Neurontin] 300 mg PO TID PRN 06/21/21 [History] Levothyroxine Sodium 88 mcg PO DAILY 06/21/21 [History] Metoprolol Succinate [Toprol XL] 25 mg PO DAILY 06/21/21 [History] Omeprazole [PriLOSEC] 20 mg PO DAILY 06/21/21 [History] traMADol HCL 50 mg PO TID PRN 06/21/21 [History] Aspirin 81 mg PO DAILY 90 Days #90 tab 06/23/21 [Rx] Atorvastatin [Lipitor] 80 mg PO HS 30 Days #30 tab 06/23/21 [Rx] Nitroglycerin Sl Tabs [Nitrostat] 0.4 mg SUBLINGUAL Q5M PRN #25 tab 06/23/21 [Rx] Ticagrelor [Brilinta] 90 mg PO BID 30 Days #60 tab 06/23/21 [Rx] lisinopriL [Zestril] 5 mg PO HS 30 Days #90 tab 06/23/21 [Rx] Follow up Appointment(s)/Referral(s): Dieter Moreira DO [STAFF PHYSICIAN] - 1 Week Cassidy Quintana MD [Primary Care Provider] - 1-2 days
--- NOTE | 2021-06-23 12:56 | P.PN ---
Subjective This is a 81-year-old female with a past medical history of hypertension and hyperlipidemia, hypothyroidism. 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 Patient presented to the emergency department on 06/21/2021 with chest pain. Found to have an inferior STEMI. Patient underwent cardiac catheterization which revealed coronary artery disease 99% proximal RCA stenosis, 80% mid LAD stenosis, 80% diagonal 1 stenosis, 30% mid circumflex stenosis. Patient with PCI to the proximal RCA. Patient seen and examined at bedside, no acute distress. No chest pain or shortness of breath. Tolerating medical therapy well. Vital signs are stable. Maintaining sinus mechanism Patient is currently maintained on aspirin 80 mg daily, atorvastatin 80 mg night ly, lisinopril 5 mg daily, metoprolol succinate 25 mg daily,Brilinta 90mg twice a day Echocardiogram revealed EF 5560%, mild aortic valve sclerosis GENERAL: Well-appearing, well-nourished and in no acute distress. NECK: Supple without JVD or thyromegaly. LUNGS: Breath sounds clear to auscultation bilaterally. Respiration equal and unlabored. No wheezes, rales or rhonchi. HEART: Regular rate and rhythm without murmurs, rubs or gallops. S1 and S2 heard. EXTREMITIES: Normal range of motion, no edema. No clubbing or cyanosis. Peripheral pulses intact. SKIN: right radial cath site clean dry intact not hematoma ASSESSMENT Inferior STEMI s/p PCI to proximal RCA 06/21/2021 Hypertension Hyperlipidemia PLAN Continue dual antiplatelet therapy with aspirin and Brilinta Continue statin, lisinopril, metoprolol succinate From cardiology perspective, patient stable and discharged home. Follow up with Dr. Moreira outpatient in 1 week. Nurse Practitioner note has been reviewed, I agree with a documented findings and plan of care. Patient was seen and examined. Objective - Vital Signs Vital signs: Vital Signs Temp 97.9 F 06/23/21 11:16 Pulse 87 06/23/21 11:16 Resp 16 06/23/21 11:16 BP 123/78 06/23/21 11:16 Pulse Ox 96 06/23/21 11:16 Intake & Output 06/22/21 06/23/21 06/23/21 18:59 06:59 18:59 Intake Total 368 360 Output Total 500 Balance -132 360 Weight 72.5 kg Intake: Oral 118 360 Tube Feeding 250 Output: Urine 500 Other: Voiding Method Toilet Toilet # Voids 2 1 1 # Bowel Movements 1 1 - Labs CBC & Chem 7: 06/22/21 08:23 06/22/21 08:23
[2021-06-23 13:12] VITALS: BMI 25.7
== END 2021-06-23 13:10 | disposition home or self-care (01) | DRG 247 ==
LOC: EC 10:18 → 2SICU 10:26 → 3SCARD 06-22 15:04
PROVIDERS: ADMIT Hospitalist; ATTEND Hospitalist
PROC: B2111ZZ Fluoroscopy of Multiple Coronary Arteries using Low Osmolar Contrast (ICD-10-PCS; 2021-06-21)
PROC: 027034Z Dilation of Coronary Artery, One Artery with Drug-eluting Intraluminal Device, Percutaneous Approach (ICD-10-PCS; principal; 2021-06-21 10:23)
PROC: 4A023N7 Measurement of Cardiac Sampling and Pressure, Left Heart, Percutaneous Approach (ICD-10-PCS; 2021-06-21 10:23)
DX: I21.19 ST elevation (STEMI) myocardial infarction involving other coronary artery of inferior wall (principal); E03.9 Hypothyroidism, unspecified; E78.00 Pure hypercholesterolemia, unspecified; E78.5 Hyperlipidemia, unspecified; G25.81 Restless legs syndrome; G47.00 Insomnia, unspecified; I10 Essential (primary) hypertension; I25.10 Atherosclerotic heart disease of native coronary artery without angina pectoris; I35.8 Other nonrheumatic aortic valve disorders; K21.9 Gastro-esophageal reflux disease without esophagitis; M19.90 Unspecified osteoarthritis, unspecified site; M79.7 Fibromyalgia; Z79.82 Long term (current) use of aspirin; Z79.890 Hormone replacement therapy; Z79.899 Other long term (current) drug therapy; Z82.49 Family history of ischemic heart disease and other diseases of the circulatory system; Z87.891 Personal history of nicotine dependence
CPT/HCPCS: 71045; 80048; 80053; 80061; 82565; 83735; 84484; 85025; 85610; 85730; 93005; 93306; 93458; 96361; 96374; 96375; 99285

== ENCOUNTER 2021-07-08 06:21 | Day surgery (SDC) | payer MEDICARE, BC ==
[~2021-07-08 06:21] MED LIST: ALPRAZolam 0.25 MG TAB PO PRN; ALPRAZolam 0.5 MG TAB PO PRN; NITROGLYCERIN SL TABS 0.4 MG TAB SUBLINGUAL PRN; SODIUM CHLORIDE 0.9% 1,000 ML in EMPTY BAG 1 BAG IV SCH
[2021-07-08] MEDS ORDERED: SODIUM CHLORIDE 0.9% 1,000 ML IV ONE (06:25)
[2021-07-08] MEDS ORDERED: HEPARIN SODIUM,PORCINE 10,000 UNIT in SODIUM CHLORIDE 0.9% 1,000 ML IRRIGATION PRN (07:00)
[2021-07-08] MEDS ORDERED: HEPARIN SODIUM,PORCINE 2,500 UNIT in SODIUM CHLORIDE 0.9% 250 ML IRRIGATION PRN (07:00)
[2021-07-08] MEDS ORDERED: ATORVASTATIN 80 MG TAB PO ONE (07:00)
[2021-07-08] MEDS ORDERED: ASPIRIN 325 MG TAB PO ONE (07:00)
[2021-07-08] MEDS ORDERED: VERAPAMIL 2.5 MG/ML 2 ML AMP ONE (07:15)
[2021-07-08] MEDS ORDERED: fentaNYL (PF) 50 MCG/ML 2 ML AMP ONE (07:15)
[2021-07-08] MEDS ORDERED: HEPARIN SODIUM 1,000 UN/ML (10ML VL) ONE (07:27)
[2021-07-08] MEDS: MIDAZOLAM 2 MG/2 ML VIAL IV ONE ×2 (07:37→08:38)
[2021-07-08] MEDS: fentaNYL (PF) 50 MCG/ML 2 ML AMP IV ONE ×2 (07:37→09:21)
[2021-07-08] MEDS ORDERED: LIDOCAINE 1% INJ 10MG/ML (20 ML MDV) SQ ONE (07:42)
[2021-07-08] MEDS: HEPARIN SODIUM 1,000 UN/ML (10ML VL) IV ONE ×2 (07:43→07:56)
[2021-07-08] MEDS ORDERED: VERAPAMIL SYRINGE (5 MG/10 ML) INTRAARTER ONE (07:43)
[2021-07-08] MEDS: NITROGLYCERIN 1000MCG/10ML SYRINGE INTRACORON ONE ×4 (08:04→09:07)
[2021-07-08] MEDS ORDERED: IOPAMIDOL-370 125ML BTL INJ ONE (08:38)
[2021-07-08] MEDS ORDERED: NITROGLYCERIN 1000MCG/10ML SYRINGE INTRACORON ONE (09:29)
[2021-07-08] MEDS ORDERED: IOPAMIDOL-370 100ML BTL INJ ONE (09:45)
[2021-07-08] MEDS ORDERED: SODIUM CHLORIDE 0.9% 1,000 ML IV SCH (10:00)
[2021-07-08] MEDS ORDERED: traMADol 50 MG TAB PO STA (10:09)
[2021-07-08] MEDS ORDERED: traMADol 50 MG TAB PO PRN (15:09)
[2021-07-08] MEDS ORDERED: CYCLOBENZAPRINE 10 MG TAB PO PRN (15:09)
[2021-07-08] MEDS ORDERED: ATROPINE SULFATE 0.1 MG/ML 10ML SYRINGE IV PRN (15:10)
[2021-07-08] MEDS ORDERED: RX INFO: IV CONTRAST WAS GIVEN 1 EACH MISC MISCELLANE PRN (15:10)
[2021-07-08] MEDS ORDERED: ZOLPIDEM 5 MG TAB PO PRN (15:10)
[2021-07-08] MEDS ORDERED: MAG HYDROX/AL HYDROX/SIMETH 30 ML CUP PO PRN (15:10)
[2021-07-08] MEDS ORDERED: ACETAMINOPHEN TAB 325 MG TAB PO PRN (16:25)
--- NOTE | 2021-07-08 19:09 | P.PRCINT ---
Percutaneous Coronary Int. - Percutaneous Coronary Intervention Percutaneous Coronary Intervention: PROCEDURES PERFORMED: Left heart catheterization, bilateral coronary angiography, PCI mid LAD/ diagonal 1 branch bifurcation with overlapping 2.5 x 15mm and 2.25 x 23mm Xience KELLEY in LAD and crush diagonal 1 2.5 x 12mm Xience KELLEY, IVUS INDICATION: Staged PCI HISTORY: Patient is a pleasant 81-year-old female with history of hypertension, hyperlipidemia, family history of CAD who had previously presented at the [facility] with inferior STEMI and was also found to have mid LAD 80% stenosis and diagonal 1 80-90% stenosis. Therefore staged PCI was recommended. CONSENT:I have discussed the risks, benefits and alternative therapies for the above-mentioned procedure and for both sedation/analgesia as well as necessary blood product administration, if indicated, as they pertain to this patient. The patient has indicated understanding and acceptance of the risks and procedures discussed. PROCEDURE: After the risks, benefits and alternatives of the above mentioned procedure explained in detail with the patient, informed consent was obtained. Patient was taken to the catheterization lab and prepped and draped in usual fashion. 1% lidocaine was used to anesthetize the right radial artery. A 6-F rench sheath was placed in the right radial artery using modified Seldinger technique. Right coronary angiography was performed with a 5-Russian JR 5 catheter. The FR5 catheter was advanced into the left ventricle and pressure measurements were obtained. Next the decision was made to perform PCI of the LAD and diagonal branch. A 6- Russian CLS 3.0 guide was used to engage the left main. Heparin was given to maintain ACT greater than 250. A 0.014 BMW wire was advanced into the distal LAD and a second BMW wire was advanced into the distal diagonal 1 branch. Predilation of the diagonal branch was performed with a 2.0 and then 2.75 x 12 mm balloon. There was still some stenosis and therefore a 3.0 balloon was used. There was a small dissection noted at the superior portion of the ostium of the diagonal branch and therefore decision was made to perform dual stenting. A 2.5 x 12 mm Xience KELLEY was advanced into the diagonal 1 branch and deployed with approximately 2-3 mm of stent out into the LAD. Next balloon angioplasty was performed of the LAD to crush the diagonal branch stent sticking out of LAD. There was some difficulty advancing a blown and therefore required serial an gioplasties with a 1.0 balloon, 1.5 balloon and then 2.75 balloon with the help of a guideliner. Initially attempted DK crush technique and therefore the diagonal branch was rewired with the 0.014 BMW wire. The LAD was wired with a 0.014 whisper wire. Attempted to pass the 1.00 Sapphire balloon however appeared to be getting caught more proximal to the ostium of the diagonal branch and on angiography appeared to be going into the dissection plane previously noted on the diagonal branch. Attempted to re-wire the diagonal ranch however unable to perform with severe angulation and wire also felt to be going into the dissection flap. Therefore decision was made to perform stenting of LAD with the crush of the diagonal branch resulting in approximately 10% stenosis. Therefore a 2.5 x 15 mm Xience KELLEY was advanced and deployed in the mid LAD at the level of the diagonal bifurcation. There was closure of the LAD after stenting with wire appearing to be intraluminal and therefore balloon angioplasty was initially performed with a 2.0 balloon at low atmosphere which showed improved flow. Patient initially had some chest pain however after ballooning chest pain improved. There was concern of a more distal dissection and therefore IVUS was performed which showed more distal dissection and therefore an additional 2.25 x 23 mm Xience KELLEY was deployed with the overlap postdilated with the 2.25 balloon. IVUS was again performed which showed no significant stenosis, no dissection. There was prior concern of a more proximal lesion noted with angiography and guideline manipulation however appeared to be spasm with only mild 30-40% more proximal LAD disease and therefore felt best treated medically. The wire was pulled and fentanyl angiograms were performed. Preintervention there was 80-90% diagonal branch stenosis and 80% LAD stenosis with FRANK 3 flow and postintervention there was 10% diagonal branch stenosis and 0% LAD stenosis with FRANK 3 flow and no dissection. The right radial sheath was removed and a TR band was placed with hemostasis achieved. Patient was transported back to the post catheterization holding area in stable condition. Conscious Sedation: Patient was monitored under the direct supervision of vision of myself for conscious sedation using Versed and fentanyl for a total duration of 123 minutes HEMODYNAMICS: Aorta: 128/59 LV: 121/4, LVEDP 17 SELECTIVE CORONARY ARTERIOGRAPHY: LEFT MAIN: The left main is a moderate caliber vessel which bifurcates into the LAD and circumflex. There is no significant stenosis. LEFT ANTERIOR DESCENDING CORONARY ARTERY: LAD is a small to moderate caliber vessel which wraps around to the apex. There is a mid LAD 80% stenosis at the level of a small to moderate caliber diagonal 1 branch. Diagonal 1 branch also has a 80-90% ostial stenosis. Otherwise there are mild luminal irregularities including a 30-40% mid LAD stenosis. LEFT CIRCUMFLEX CORONARY ARTERY: Left circumflex is a moderate caliber vessel with mid circumflex 30-40% stenosis. RIGHT CORONARY ARTERY: The right coronary artery is a small caliber vessel which gives off a PDA and PLV branch and is the dominant vessel. There is a proximal RCA stent which is patent and otherwise mild luminal irregularities. FINAL IMPRESSION: 1. CAD as described above including 80% mid LAD stenosis, 80-90% diagonal 1 stenosis, 30-40% mid circumflex stenosis 2. S/p PCI mid LAD/ diagonal 1 branch bifurcation with overlapping 2.5 x 15mm and 2.25 x 23mm Xience KELLEY in LAD and crush diagonal 1 2.5 x 12mm Xience KELLEY 3. Mildly elevated left sided filling pressures PLAN: 1. Aggressive risk factor modification per most recent ACC/AHA guidelines. 2. Continue dual antiplatelets with aspirin and Brillinta for 12 months.
[2021-07-08] MEDS: GABAPENTIN 300 MG CAP PO PRN (19:53)
[2021-07-08] MEDS: TICAGRELOR 90 MG TAB PO SCH (19:53)
[2021-07-08] MEDS ORDERED: lisinopriL 5 MG TAB PO SCH (21:00)
[2021-07-08] MEDS ORDERED: ATORVASTATIN 80 MG TAB PO SCH (21:00)
[2021-07-08 21:08] LABS: Magnesium 1.9 mg/dL (1.6-2.3); Potassium 3.9 mmol/L (3.5-5.1)
[2021-07-09] MEDS ORDERED: LEVOTHYROXINE 88 MCG TAB PO SCH (06:30)
[2021-07-09 07:28] LABS: Basophils % (A) 0 %; Eosinophils % (A) 0 %; HCT 34.6 % (34.0-46.0); HGB 11.8 gm/dL (11.4-16.0); Lymphocytes # (A) 1.3 k/uL (1.0-4.8); Lymphocytes % (A) 22 %; MCH 31.1 pg (25.0-35.0); MCHC 34.1 g/dL (31.0-37.0); MCV 91.1 fL (80.0-100.0); Mean Platelet Volume 8.2; Monocytes # (A) 0.3 k/uL (0-1.0); Monocytes % (A) 6 %; Neutrophils # (A) 3.9 k/uL (1.3-7.7); Neutrophils % (A) 70 %; Platelet Count 171 k/uL (150-450); RDW 13.3 % (11.5-15.5); WBC 5.7 k/uL (3.8-10.6)
[2021-07-09] MEDS ORDERED: PANTOPRAZOLE 40 MG TABLET PO SCH (07:30)
[2021-07-09 07:48] LABS: African American GFR (CKD) >90 (>60 ml/min/1.73 sqM); Anion Gap 8 mmol/L; Blood Urea Nitrogen 11 mg/dL (7-17); Calcium 8.8 mg/dL (8.4-10.2); Carbon Dioxide 22 mmol/L (22-30); Chloride 106 mmol/L (98-107); Glucose 127 mg/dL (74-99); Non-African American GFR(CKD) 83 (>60 ml/min/1.73 sqM); Potassium 3.9 mmol/L (3.5-5.1); Sodium 136 mmol/L (137-145)
--- NOTE | 2021-07-09 08:22 | P.DS ---
Providers Attending physician: Dieter Moreira DO Consults: 07/08/21 15:10 Consult Physician Routine Consulting Provider: [facility] Consult Reason/Comments: Post Interventional patient Do you want consulting provider notified?: Already Contacted Primary care physician: Cassidy Quintana [facility] Course: Patient is a pleasant 81-year-old female with history of inferior STEMI approximately 2 weeks ago who presented for staged PCI to the LAD and diagonal bifurcation. Patient underwent successful bifurcation crush technique stenting of the LAD and diagonal branch. She had temporary chest pain with angioplasty however this resolved with no further pain noted overnight. Seen and examined 07/09 with radial site 2/4 pulse, no hematoma and lungs CTAB with RRR. Patient was stable for discharge home 07/09 with follow-up in 1 week. She will be on dual antiplatelets with aspirin and Brillinta. Plan - Discharge Summary Discharge Rx Participant: No New Discharge Prescriptions: No Action traMADol HCL 50 mg PO TID PRN PRN Reason: Pain Levothyroxine Sodium 88 mcg PO DAILY Gabapentin [Neurontin] 300 mg PO TID PRN PRN Reason: Pain Ticagrelor [Brilinta] 90 mg PO BID 30 Days #60 tab Atorvastatin [Lipitor] 80 mg PO HS 30 Days #30 tab Omeprazole [PriLOSEC] 20 mg PO DAILY Metoprolol Succinate [Toprol XL] 25 mg PO DAILY Cyclobenzaprine [Flexeril] 10 mg PO HS PRN PRN Reason: Muscle Spasm Alendronate Sodium 70 mg PO MENDOZA Nitroglycerin Sl Tabs [Nitrostat] 0.4 mg SUBLINGUAL Q5M PRN #25 tab PRN Reason: Chest Pain lisinopriL [Zestril] 5 mg PO HS 30 Days #90 tab Aspirin 81 mg PO DAILY 90 Days #90 tab Discharge Medication List Alendronate Sodium 70 mg PO MENDOZA 06/21/21 [History] Cyclobenzaprine [Flexeril] 10 mg PO HS PRN 06/21/21 [History] Gabapentin [Neurontin] 300 mg PO TID PRN 06/21/21 [History] Levothyroxine Sodium 88 mcg PO DAILY 06/21/21 [History] Metoprolol Succinate [Toprol XL] 25 mg PO DAILY 06/21/21 [History] Omeprazole [PriLOSEC] 20 mg PO DAILY 06/21/21 [History] traMADol HCL 50 mg PO TID PRN 06/21/21 [History] Aspirin 81 mg PO DAILY 90 Days #90 tab 06/23/21 [Rx] Atorvastatin [Lipitor] 80 mg PO HS 30 Days #30 tab 06/23/21 [Rx] Nitroglycerin Sl Tabs [Nitrostat] 0.4 mg SUBLINGUAL Q5M PRN #25 tab 06/23/21 [Rx] Ticagrelor [Brilinta] 90 mg PO BID 30 Days #60 tab 06/23/21 [Rx] lisinopriL [Zestril] 5 mg PO HS 30 Days #90 tab 06/23/21 [Rx] Follow up Appointment(s)/Referral(s): Dieter Moreira DO [STAFF PHYSICIAN] - 1 Week Patient Instructions/Handouts: Coronary Angioplasty (DC), After Radial Heart Catheterization (GEN), Procedural Sedation (ED), Left Heart Catheterization (DC) Activity/Diet/Wound Care/Special Instructions: No driving today or tomorrow. Remove dressing tomorrow afternoon, ok to shower but no baths, pools, hot tubs, soaking wrist for five days. No need to apply dressing, ointments, powders to site. Leave open to the air. Avoid bending, flexing, pushing, pulling, lifting greater than 5 lbs for 5days. If puncture site bleeds, apply firm direct pressure and return to ER. Signs of infections IE: fever, rash, drainage from puncture site, swelling contact doctor for further orders/return to ER. Left Heart Cath instructions: No driving for two days. Ok to shower tomorrow but no baths, soaking for three days. Avoid pushing, pulling, straining, lifting greater than 10 for 3 days. signs of infectioin: fever, rash, swelling of puncture site, drainage from puncture site contact doctor or return to ER. Call 911 to come to ER for heavy bleeding from puncture site. Do not drive self.
[2021-07-09] MEDS ORDERED: METOPROLOL SUCCINATE (ER) 25 MG TAB.ER.24H PO SCH (09:00)
[2021-07-09] MEDS ORDERED: ASPIRIN 81 MG PO SCH (09:00)
[2021-07-09] MEDS: TICAGRELOR 90 MG TAB PO SCH (09:41)
[2021-07-09] MEDS: GABAPENTIN 300 MG CAP PO PRN (09:44)
[2021-07-09 11:03] VITALS: BMI 28.2
[2021-07-09 11:15] VITALS: BP 108/57; PULSE 106; RESP 16; TEMP 98.9
[2021-07-13] MEDS ORDERED: NON FORMULARY DRUG (Alendronate Sodium [Alendronate Sodium] 70 MG Tablet) PO SCH (15:09)
== END 2021-07-09 11:36 | disposition home or self-care (01) ==
LOC: CATHCVL 06:21 → 3SCARD 09:45 → CATHCVL 07-09 11:36
PROVIDERS: ATTEND Internal Medicine
DX: I25.10 Atherosclerotic heart disease of native coronary artery without angina pectoris (principal); I10 Essential (primary) hypertension; E78.5 Hyperlipidemia, unspecified; E78.00 Pure hypercholesterolemia, unspecified; E03.9 Hypothyroidism, unspecified; I25.2 Old myocardial infarction; I34.0 Nonrheumatic mitral (valve) insufficiency; Z20.822 Contact with and (suspected) exposure to COVID-19; Z79.899 Other long term (current) drug therapy; Z79.02 Long term (current) use of antithrombotics/antiplatelets; Z82.49 Family history of ischemic heart disease and other diseases of the circulatory system
CPT/HCPCS: 92978; 93458; 80048; 83735; 84132; 85025; 87635; C9601; C9600; C1769 ×2; C1887 ×2; C1894; C1725 ×6; C1753; C1874 ×3; J2250; J2001; J3010; J1644; Q9967 ×2

== ENCOUNTER → 2024-02-29 | Outpatient (CLI) | payer MEDICARE, BC ==
[2024-02-29 15:06] LABS: African American GFR (CKD) 89 (>60 ml/min/1.73 sqM); Blood Urea Nitrogen 20 mg/dL (7-17); Non-African American GFR(CKD) 77 (>60 ml/min/1.73 sqM)
--- NOTE | 2024-03-01 08:36 | CT ---
EXAMINATION TYPE: CT abdomen pelvis w con DATE OF EXAM: 02/29/2024 4:08 PM COMPARISON: None CLINICAL INDICATION: Female, 84 years old with history of K43.2 INCISIONAL HERNIA; Pt had a hernia r epaired twice in the rt side pelvic region. Suspected new incisional hernia in same region. TECHNIQUE: Axial CT abdomen pelvis w con;Sagittal and coronal reformats were created on a separate w orkstation. Contrast used:80 ml mL of Isovue 300 with IV Contrast, (none if empty) Oral contrast used: with Oral Contrast (none if empty) CT DLP: 508.3 mGycm, Automated exposure control for dose reduction was used. FINDINGS: LOWER CHEST: Unremarkable ABDOMEN LIVER: Unremarkable GALLBLADDER AND BILE DUCTS: Unremarkable. PANCREAS: Unremarkable. SPLEEN: Unremarkable. ADRENAL GLANDS: Unremarkable. KIDNEYS AND URETERS: No evidence of hydronephrosis or renal calculus. The ureters are unremarkable. PELVIS BLADDER: No evidence for wall thickening or mass given limitations of exam. REPRODUCTIVE: The uterus is surgically absent. ABDOMEN & PELVIS STOMACH AND BOWEL: No evidence of bowel obstruction. Scattered colonic diverticula. There is a large stool burden in the right colon. Hernias as described below without evidence for obstruction. PERITONEUM/RETROPERITONEUM: No evidence of pneumoperitoneum or free fluid. VASCULATURE: No evidence of aortic aneurysm. MUSCULOSKELETAL: No acute osseous abnormalities, right hip fixation screws appear intact. LYMPH NODES: No gross evidence for lymphadenopathy. SOFT TISSUE/ABDOMINAL WALL: Right spigelian hernia containing loops of small bowel. Small fat-contain ing left spigelian hernia. No evidence for obstruction or strangulation. IMPRESSION: 1. Right spigelian hernia containing loops of small bowel. Small fat-containing left bone gallium he rnia. 2. No evidence for bowel obstruction or strangulation. 3. Clonic diverticulosis. 4. Right hip fixation hardware intact. [facility], , 03/01/2024 8:34 AM
== END | disposition home or self-care (01) ==
LOC: RADCTMAIN 14:05
PROVIDERS: ATTEND Surgery
DX: K43.2 Incisional hernia without obstruction or gangrene (principal); K43.9 Ventral hernia without obstruction or gangrene; K57.90 Diverticulosis of intestine, part unspecified, without perforation or abscess without bleeding
CPT/HCPCS: 82565; 84520; 74177; 36415; Q9967

== ENCOUNTER 2024-03-18 07:19 | Emergency (ER) | payer MEDICARE, BC ==
[2024-03-18 07:27] VITALS: RESP 18; TEMP 98
[2024-03-18 08:09] LABS: Basophils % (A) 0 %; Eosinophils # (A) 0.1 k/uL (0-0.7); Eosinophils % (A) 1 %; HCT 39.8 % (34.0-46.0); HGB 13.4 gm/dL (11.4-16.0); Lymphocytes # (A) 1.8 k/uL (1.0-4.8); Lymphocytes % (A) 30 %; MCH 30.8 pg (25.0-35.0); MCHC 33.6 g/dL (31.0-37.0); MCV 91.7 fL (80.0-100.0); Monocytes # (A) 0.3 k/uL (0-1.0); Monocytes % (A) 6 %; Neutrophils # (A) 3.7 k/uL (1.3-7.7); Neutrophils % (A) 61 %; Platelet Count 180 k/uL (150-450); RBC 4.34 m/uL (3.80-5.40); RDW 12.6 % (11.5-15.5)
--- NOTE | 2024-03-18 08:10 | ED ---
General Adult HPI - General Chief complaint: Arrhythmia/Palpitations Stated complaint: heart racing Time Seen by Provider: 03/18/24 07:25 Source: patient, RN notes reviewed, old records reviewed Mode of arrival: ambulatory Limitations: no limitations - History of Present Illness Initial comments: This is an 84-year-old female presents to the emergency department stating that she feels as though her heart is racing. Patient states she feels her heart rate in her head. Patient denies a headache patient denies numbness weakness. Patient denies any focal deficit. states she is acting and talking and looking normally. Patient denies any chest pain difficulty breathing shortness of breath. Patient denies any fever chills or cough or patient has abdominal pain patient has nausea vomiting diarrhea. - Related Data Home Medications Medication Instructions Recorded Confirmed Alendronate Sodium 70 mg PO MENDOZA 06/21/21 05/11/22 Cyclobenzaprine [Flexeril] 10 mg PO HS PRN 06/21/21 05/11/22 Gabapentin [Neurontin] 300 mg PO BID 06/21/21 05/11/22 Levothyroxine Sodium 88 mcg PO DAILY 06/21/21 05/11/22 Omeprazole [PriLOSEC] 20 mg PO DAILY 06/21/21 05/11/22 traMADol HCL 50 mg PO BID 06/21/21 05/11/22 Biotin [Vwnh-Dyvf-Toaxt] 10,000 mcg PO DAILY 05/11/22 05/11/22 Cholecalciferol [Vitamin D3 (25 25 mcg PO DAILY 05/11/22 05/11/22 Mcg = 1000 Iu)] Clopidogrel [Plavix] 75 mg PO DAILY 05/11/22 05/11/22 Lysine [l-Lysine] 600 mg PO DAILY 05/11/22 05/11/22 Multivitamins, Thera [Multivitamin 1 tab PO DAILY 05/11/22 05/11/22 (formulary)] Potassium Gluconate 99 mg PO DAILY 05/11/22 05/11/22 Vit C/E/Zn/Coppr/Lutein/Zeaxan 1 cap PO DAILY 05/11/22 05/11/22 [Preservision Areds 2 Softgel] Previous Rx's Medication Instructions Recorded Aspirin 81 mg PO DAILY 90 Days #90 tab 06/23/21 Atorvastatin [Lipitor] 80 mg PO HS 30 Days #30 tab 06/23/21 Nitroglycerin Sl Tabs [Nitrostat] 0.4 mg SUBLINGUAL Q5M PRN #25 tab 06/23/21 lisinopriL [Zestril] 5 mg PO HS 30 Days #90 tab 06/23/21 HYDROcodone/APAP 5-325MG [[place] 1 - 2 tab PO Q6HR PRN #32 tab 05/12/22 5-325] Sennosides [Senokot] 2 tab PO DAILY PRN #60 tablet 05/12/22 Ferrous Sulfate [Iron (65 MG 325 mg PO BID-W/MEALS #60 tab 05/16/22 Elemental)] Metoprolol Succinate (ER) [Toprol 25 mg PO BID #60 tab 05/16/22 XL] Allergies Allergy/AdvReac Type Severity Reaction Status Date / Time latex Allergy Rash/Hives Verified 03/18/24 07:24 Review of Systems ROS Statement: Those systems with pertinent positive or pertinent negative responses have been documented in the HPI. ROS Other: All systems not noted in ROS Statement are negative. Past Medical History Past Medical History: Hyperlipidemia, Hypertension, Myocardial Infarction (NM), Thyroid Disorder Additional Past Medical History / Comment(s): fibromyalgia, arthritis Last Myocardial Infarction Date:: 06/21/2021 History of Any Multi-Drug Resistant Organisms: None Reported Past Surgical History: No Surgical Hx Reported, Heart Catheterization With Stent Additional Past Surgical History / Comment(s): cataract surg, macular surg. Past Anesthesia/Blood Transfusion Reactions: No Reported Reaction Date of Last Stent Placement:: 06/21/21 Past Psychological History: No Psychological Hx Reported Smoking Status: Never smoker Past Alcohol Use History: None Reported Past Drug Use History: None Reported - Past Family History Father Family Medical History: Myocardial Infarction (NM) Brother(s) Family Medical History: Cancer, Coronary Artery Disease (CAD) Additional Family Medical History / Comment(s): 2x CABG Sister(s) Family Medical History: No Reported History Son(s) Family Medical History: No Reported History General Exam - General Exam Comments Initial Comments: GENERAL: Patient is well-developed and well-nourished. Patient is nontoxic and well-hydrated and is in no acute distress. ENT: Neck is soft and supple. No significant lymphadenopathy is noted. Oropharynx is clear. Moist mucous membranes. Neck has full range of motion without eliciting any pain. EYES: The sclera were anicteric and conjunctiva were pink and moist. Extraocular move ments were intact and pupils were equal round and reactive to light. Eyelids were unremarkable. PULMONARY: Unlabored respirations. Good breath sounds bilaterally. No audible rales rhonchi or wheezing was noted. CARDIOVASCULAR: There is a regular rate and rhythm without any murmurs gallops or rubs. ABDOMEN: Soft and nontender with normal bowel sounds. SKIN: Skin is clear with no lesions or rashes and otherwise unremarkable. NEUROLOGIC: Patient is alert and oriented x3. Cranial nerves II through XII are grossly intact. Motor and sensory are also intact. Normal speech, volume and content. Symmetrical smile. MUSCULOSKELETAL: Normal extremities with adequate strength and full range of motion. LYMPHATICS: No significant lymphadenopathy is noted PSYCHIATRIC: Patient appears mildly anxious. Limitations: no limitations Course Vital Signs 03/18/24 03/18/24 07:24 08:04 Temperature 98 F Pulse Rate 90 Pulse Rate [ 87 Assistant Press Operator Offset ] Respiratory 18 Rate Blood Pressure 156/73 O2 Sat by Pulse 98 Oximetry Medical Decision Making - Medical Decision Making EKG is interpreted by myself. EKG shows a sinus rhythm at 84 bpm DC interval 150 QRS is 97 QT interval 349 QTc is 390. Patient EKG shows no ST segment elevation or depression Was pt. sent in by a medical professional or institution ([facility], [employer], urgent care, hospital, or correction...) When possible be specific @ -No Did you speak to anyone other than the patient for history (EMS, parent, family, police, friend...)? What history was obtained from this source @ -No Did you review nursing and triage notes (agree or disagree)? Why? @ -I reviewed and agree with nursing and triage notes Were old charts reviewed (outside hosp., previous admission, EMS record, old EKG, old radiological studies, urgent care reports/EKG's, correction records)? Report findings @ -No old charts were reviewed Differential Diagnosis? @ -Differential Palpitations Ventricular arrhythmias, atrial arrhythmias, myocardial infarction, anemia, thyrotoxicosis, electrolyte imbalance, hypokalemia, pulmonary embolism, pulmonary disease, drugs, alcohol, anxiety, stress.... This is not meant to be an all-inclusive list. EKG interpreted by me (3pts min.). @ -As above X-rays interpreted by me (1pt min.). @ -Chest x-ray shows no acute abnormality CT interpreted by me (1pt min.). @ -None done U/S interpreted by me (1pt. min.). @ -None done What testing was considered but not performed or refused? (CT, X-rays, U/S, labs)? Why? @ -None What meds were considered but not given or refused? Why? @ -None Did you discuss the management of the patient with other professionals (pr ofessionals i.e. , PA, [employer], lab, RT, psych nurse, social organization professor, wood pile driver operator, teacher, compliance review officer, bottle caser)? Give summary @ -No Was smoking cessation discussed for >3mins.? @ -No Was critical care preformed (if so, how long)? @ -No Were there social determinants of health that impacted care today? How? (Homelessness, low income, unemployed, alcoholism, drug addiction, transportation, low edu. Level, literacy, decrease access to med. care, senior care, rehab)? @ -No Was there de-escalation of care discussed even if they declined (Discuss DNR or withdrawal of care, Hospice)? DNR status @ -No What co-morbidities impacted this encounter? (DM, HTN, Smoking, COPD, CAD, Cancer, CVA, ARF, Chemo, Hep., AIDS, mental health diagnosis, sleep apnea, morbid obesity)? @ -None Was patient admitted / discharged? Hospital course, mention meds given and route, prescriptions, significant lab abnormalities, going to OR and other pertinent info. @ -Patient had no fast heart rate while in the emergency department. Patient's heart rate was regular the whole time. Patient had no elevated blood pressure. Patient's pulse ox was normal. Patient's symptoms eventually resolved and she was feeling better lab work was all within normal range x-rays normal range and patient's urine showed no acute abnormality. Patient be discharged home to follow-up. Undiagnosed new problem with uncertain prognosis? @ -No Drug Therapy requiring intensive monitoring for toxicity (Heparin, Nitro, Insulin, Cardizem)? @ -No Were any procedures done? @ -No Diagnosis/symptom? @ -Palpitation Acute, or Chronic, or Acute on Chronic? @ -Acute Uncomplicated (without systemic symptoms) or Complicated (systemic symptoms)? @ -Complicated Side effects of treatment? @ -No Exacerbation, Progression, or Severe Exacerbation? @ -No Poses a threat to life or bodily function? How? (Chest pain, [place], NM, pneumonia, PE, COPD, DKA, ARF, appy, cholecystitis, CVA, Diverticulitis, Homicidal, Suicidal, threat to staff... and all critical care pts) @ -No - Lab Data Result diagrams: 03/18/24 08:03 03/18/24 08:03 Lab Results 03/18/24 03/18/24 03/18/24 Range/Units 08:03 08:03 08:03 WBC 6.0 (3.8-10.6) k/uL RBC 4.34 (3.80-5.40) m/uL Hgb 13.4 (11.4-16.0) gm/dL Hct 39.8 (34.0-46.0) % MCV 91.7 (80.0-100.0) fL MCH 30.8 (25.0-35.0) pg MCHC 33.6 (31.0-37.0) g/dL RDW 12.6 (11.5-15.5) % Plt Count 180 (150-450) k/uL MPV 8.0 Neutrophils % 61 % Lymphocytes % 30 % Monocytes % 6 % Eosinophils % 1 % Basophils % 0 % Neutrophils # 3.7 (1.3-7.7) k/uL Lymphocytes # 1.8 (1.0-4.8) k/uL Monocytes # 0.3 (0-1.0) k/uL Eosinophils # 0.1 (0-0.7) k/uL Basophils # 0.0 (0-0.2) k/uL PT 10.5 (10.0-12.5) sec INR 0.9 (<1.2) APTT 18.6 L (22.0-30.0) sec Sodium 139 (137-145) mmol/L Potassium 4.2 (3.5-5.1) mmol/L Chloride 104 (98-107) mmol/L Carbon Dioxide 27 (22-30) mmol/L Anion Gap 8 mmol/L BUN 22 H (7-17) mg/dL Creatinine 0.81 (0.52-1.04) mg/dL Est GFR (CKD-EPI)AfAm 79 (>60 ml/min/1.73 sqM) Est GFR (CKD-EPI)NonAf 68 (>60 ml/min/1.73 sqM) Glucose 106 H (74-99) mg/dL Calcium 9.6 (8.4-10.2) mg/dL Magnesium 2.1 (1.6-2.3) mg/dL Total Bilirubin 0.5 (0.2-1.3) mg/dL AST 30 (14-36) U/L ALT 31 (4-34) U/L Alkaline Phosphatase 58 (38-126) U/L Troponin I (0.000-0.034) ng/mL Total Protein 7.0 (6.3-8.2) g/dL Albumin 4.6 (3.5-5.0) g/dL TSH 0.613 (0.465-4.680) mIU/L Urine Color Urine Appearance (Clear) Urine pH (5.0-8.0) Ur Specific [place] (1.001-1.035) Urine Protein (Negative) Urine Glucose (UA) (Negative) Urine Ketones (Negative) Urine Blood (Negative) Urine Nitrite (Negative) Urine Bilirubin (Negative) Urine Urobilinogen (<2.0) mg/dL Ur Leukocyte Esterase (Negative) Urine RBC (0-5) /hpf Urine WBC (0-5) /hpf 03/18/24 03/18/24 Range/Units 08:03 08:56 WBC (3.8-10.6) k/uL RBC (3.80-5.40) m/uL Hgb (11.4-16.0) gm/dL Hct (34.0-46.0) % MCV (80.0-100.0) fL MCH (25.0-35.0) pg MCHC (31.0-37.0) g/dL RDW (11.5-15.5) % Plt Count (150-450) k/uL MPV Neutrophils % % Lymphocytes % % Monocytes % % Eosinophils % % Basophils % % Neutrophils # (1.3-7.7) k/uL Lymphocytes # (1.0-4.8) k/uL Monocytes # (0-1.0) k/uL Eosinophils # (0-0.7) k/uL Basophils # (0-0.2) k/uL PT (10.0-12.5) sec INR (<1.2) APTT (22.0-30.0) sec Sodium (137-145) mmol/L Potassium (3.5-5.1) mmol/L Chloride (98-107) mmol/L Carbon Dioxide (22-30) mmol/L Anion Gap mmol/L BUN (7-17) mg/dL Creatinine (0.52-1.04) mg/dL Est GFR (CKD-EPI)AfAm (>60 ml/min/1.73 sqM) Est GFR (CKD-EPI)NonAf (>60 ml/min/1.73 sqM) Glucose (74-99) mg/dL Calcium (8.4-10.2) mg/dL Magnesium (1.6-2.3) mg/dL Total Bilirubin (0.2-1.3) mg/dL AST (14-36) U/L ALT (4-34) U/L Alkaline Phosphatase (38-126) U/L Troponin I <0.012 (0.000-0.034) ng/mL Total Protein (6.3-8.2) g/dL Albumin (3.5-5.0) g/dL TSH (0.465-4.680) mIU/L Urine Color Colorless Urine Appearance Clear (Clear) Urine pH 6.5 (5.0-8.0) Ur Specific [place] 1.012 (1.001-1.035) Urine Protein Negative (Negative) Urine Glucose (UA) Negative (Negative) Urine Ketones Negative (Negative) Urine Blood Negative (Negative) Urine Nitrite Negative (Negative) Urine Bilirubin Negative (Negative) Urine Urobilinogen <2.0 (<2.0) mg/dL Ur Leukocyte Esterase Small H (Negative) Urine RBC <1 (0-5) /hpf Urine WBC 1 (0-5) /hpf Disposition Clinical Impression: Palpitations Disposition: HOME SELF-CARE Condition: Good Instructions (If sedation given, give patient instructions): Heart Palpitations (ED) Is patient prescribed a controlled substance at d/c from ED?: No Referrals: Cassidy Quintana MD [Primary Care Provider] - 1-2 days Time of Disposition: 09:41
[2024-03-18 08:26] LABS: INR 0.9 (<1.2); Prothrombin Time 10.5 sec (10.0-12.5)
--- NOTE | 2024-03-18 08:28 | XR ---
EXAMINATION TYPE: XR chest 2V DATE OF EXAM: 03/18/2024 CLINICAL HISTORY: Dysrhythmia TECHNIQUE: Frontal and lateral views of the chest are obtained. COMPARISON: Chest x-ray May 11, 2022 FINDINGS: Improved inspiration. Overlying EKG leads are seen on the current study. There is no focal air space opacity, pleural effusion, or pneumothorax seen. The cardiac silhouette size is within no rmal limits. The osseous structures are intact. IMPRESSION: No acute process. [facility], , 03/18/2024 8:26 AM
[2024-03-18 08:33] LABS: Partial Thromboplastin Time 18.6 sec (22.0-30.0)
[2024-03-18 08:36] LABS: ALT 31 U/L (4-34); AST 30 U/L (14-36); African American GFR (CKD) 79 (>60 ml/min/1.73 sqM); Albumin 4.6 g/dL (3.5-5.0); Alkaline Phosphatase 58 U/L (38-126); Anion Gap 8 mmol/L; Blood Urea Nitrogen 22 mg/dL (7-17); Calcium 9.6 mg/dL (8.4-10.2); Carbon Dioxide 27 mmol/L (22-30); Chloride 104 mmol/L (98-107); Glucose 106 mg/dL (74-99); Magnesium 2.1 mg/dL (1.6-2.3); Non-African American GFR(CKD) 68 (>60 ml/min/1.73 sqM); Potassium 4.2 mmol/L (3.5-5.1); Sodium 139 mmol/L (137-145); Total Bilirubin 0.5 mg/dL (0.2-1.3)
[2024-03-18 09:14] LABS: Appearance,Urine Clear (Clear); Bilirubin,Urine Negative (Negative); Blood,Urine Negative (Negative); Color,Urine Colorless; Glucose,Urine (UA) Negative (Negative); Ketones,Urine Negative (Negative); Leukocyte Esterase,Urine Small (Negative); Nitrite,Urine Negative (Negative); PH, Urine 6.5 (5.0-8.0); Protein,Urine Negative (Negative); RBC,Urine <1 /hpf (0-5); Specific Gravity,Urine 1.012 (1.001-1.035); Urobilinogen,Urine <2.0 mg/dL (<2.0); WBC,Urine 1 /hpf (0-5)
[2024-03-18 10:13] VITALS: BP 126/74; PULSE 86
== END 2024-03-18 09:40 | disposition home or self-care (01) ==
LOC: EC 07:19
DX: R00.2 Palpitations (principal); Z91.040 Latex allergy status
CPT/HCPCS: 36415; 71046; 80053; 81001; 83735; 84443; 84484; 85025; 85610; 85730; 93005; 99285